=== PATIENT | male | born 1930 | race Caucasian/White ===

== ENCOUNTER 2017-03-12 15:22 | Inpatient (IN) | payer MEDICARE, OTHER ==
[~2017-03-12] VITALS: Ht 175.3 cm; Wt 87.4 kg
--- NOTE | ~2017-03-12 | EC ---
PATIENT:GIRISH PADILLA DATE OF SERVICE: 03/12/17 SEX: M MEDICAL RECORD: [id number] DATE OF : [birth year] LOCATION:[facility] AGE OF PATIENT: 86 ADMISSION DATE: 03/12/17 REFERRING PHYSICIAN: INTERPRETING PHYSICIAN: MOHINI MARIN M.D. ECHOCARDIOGRAM REPORT ECHO CHARGES 5 ECHO LIMITED CLINICAL DIAGNOSIS: REASSESS FOR VEG ECHOCARDIOGRAPHIC MEASUREMENTS (adult normal given) AC root (d.<3.7cm) 3.2 LV Septum d (<1.2 cm> 1.2 Valve Excursion 0.7 LV Septum (systole) 1.9 Left Atria (s.<4.0cm> 4.6 LVPW d(<1.2cm) 1.2 RV (d.<2.3cm) 2.9 LVPW (sytole) 1.8 LV diastole(<5.6CM) 4.7 MV E-F(>70mm/sec) LV systole 3.4 LVOT Diameter 1.9 MV exc.(>10mm) Est.ejection fraction (50-75%) Pericardial Effusion N DOPPLER: LVIT A E 128 LA RVSP 48.3 LVOT 95.0 AOP1/2T Asc. Ao 238 RVOT 57.0 RA PA 96.0 AV Gradient Peak 23.0 AV Mean 13.3 AV Area 1.1 MV Gradient Peak 7.8 MV Mean 3.6 MV Area COMMENTS: Industrial Nurse: Robert LI Slab Off Mill Tender:Robert Marin TAPE# PACS DATE OF SERVICE: 03/22/2017 REFERRING PHYSICIAN: Dr. Vincent Gómez. INDICATION: Endocarditis. DESCRIPTION: This is a limited study. Another study was performed about a week ago. Left ventricle is mildly dilated. There is severe LV dysfunction noted. Estimated ejection fraction is in the order of 20%-25%. The posterior leaflet of the mitral valve is heavily calcified. It is pretty much nonmobile. The ECHOCARDIOGRAM REPORT [id number] GIRISH PADILLA anterior leaflet does move. I did not see any vegetation on the anterior leaflet. There is moderate regurgitation seen. Left atrium is mildly dilated. The aortic valve leaflets are heavily calcified. Right ventricle appears mildly dilated. Tricuspid valve is structurally normal. There is mild regurgitation seen. Right atrium is mildly dilated. No pericardial effusion is noted. IMPRESSION: 1. 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 2. Mitral valve: Posterior leaflet is heavily calcified. I do not see any vegetations on the mitral valve. There is moderate regurgitation noted. 3. Heavily calcified aortic valve, but again this appears to be more calcium and not vegetation. TRANSINT:[id number] Voice Confirmation ID: [id number] DOCUMENT ID: [id number] MOHINI MARIN M.D. CC: [id number] DICTATION DATE: 03/23/17715 ASSISTANT COMMISSIONER: 03/23/17 1240 ADM IN [facility] [address] [id number]
[2017-03-12 15:55] LABS: BASOPHILS 0.1 % (0-2); EOSINOPHILS 0.1 % (0-7); HEMATOCRIT 46.1 % (42.0-54.0); HEMOGLOBIN 15.7 g/dL (13.5-17.5); IMMATURE GRANULOCYTES 0.2 % (0-5); LYMPHOCYTES 2.6 % (15-50); MCH 32.7 pg (26.0-34.0); MCHC 34.1 g/dL (31.0-37.0); MEAN PLATELET VOLUME 10.8 fL (7.4-10.4); PLATELET COUNT 153 10x3/uL (130-400); RDW 13.5 % (11.5-14.5); WBC 14.5 10x3/uL (4.8-10.8)
[2017-03-12 16:08] LABS: ALBUMIN 3.7 g/dL (3.4-5.0); ALKALINE PHOSPHATASE 295 U/L (46-116); ALT (SGPT) 133 U/L (10-68); BILIRUBIN - TOTAL 3.95 mg/dL (0.2-1.3); CALC OSMOLALITY 283 mosm/kg (275-300); CALCIUM 9.2 mg/dL (8.5-10.1); CARBON DIOXIDE 24.2 mmol/L (21.0-32.0); CHLORIDE - SERUM 102 mmol/L (98-107); CREATININE - SERUM 1.6 mg/dL (0.6-1.3); GLUCOSE 187 mg/dL (74-106); PROTEIN - SERUM 7.9 g/dL (6.4-8.2); SODIUM 139 mmol/L (136-145); UREA NITROGEN 15 mg/dL (7-18); eGFR NON AFRICAN AMERICAN 44 mL/min (90-120)
[2017-03-12 16:12] LABS: AMYLASE - SERUM 50 U/L (25-115); LIPASE 189 U/L (73-393); TROPONIN-I < 0.017 ng/mL (0.000-0.060)
[2017-03-12 17:08] LABS: APPEARANCE CLEAR (CLEAR); BILIRUBIN NEGATIVE (NEGATIVE); COLOR YELLOW (YELLOW); GLUCOSE 250 mg/dL (NEGATIVE); KETONE NEGATIVE (NEGATIVE); LEUKOCYTE ESTERASE TRACE (NEGATIVE); NITRITE NEGATIVE (NEGATIVE); PROTEIN 1+ mg/dL (NEGATIVE); SPECIFIC GRAVITY 1.005 (1.005-1.020)
[2017-03-12 17:10] LABS: BACTERIA NONE SEEN /hpf (NONE SEEN); EPITHELIAL CELLS 0-5 /hpf (0-5); RED CELLS - URINE 0-5 /hpf (0-5); WHITE CELLS - URINE 0-5 /hpf (0-5)
[2017-03-12] MEDS ORDERED: CORDARONE200 MG PO (21:56)
[2017-03-12] MEDS ORDERED: SYNTHROID137 MCG PO (22:06)
[2017-03-12] MEDS ORDERED: AVAPRO150 MG PO (22:08)
[2017-03-12] MEDS ORDERED: ELIQUIS5 MG PO (22:10)
[2017-03-12] MEDS ORDERED: SIMBRINZA 1%-0.28 ML EACH EYE (22:17)
--- NOTE | 2017-03-12 23:19 | NUR ---
PATIENT'S SON REQUESTED THAT THE DOC BE CALLED TO REQUEST SOMETHING TO HELP THE PATIENT SLEEP. THE PATIENT IS AGITATED AND WILL NOT STAY IN THE BED. SPOKE WITH KALPESH FILLING TECHNICIAN AND SHE SAID IT WAS OK TO CALL DR. ALEJANDRE.
[2017-03-13] VITALS (22 sets, daily range): BP systolic 58–165; BP diastolic 34–99; BMI 24.4
--- NOTE | 2017-03-13 00:35 | NUR ---
PATIENT'S HR 140, CALLED ANA POSEYSOLIDWORKS DESIGNER TO PULL AMIODARONE.
--- NOTE | 2017-03-13 03:07 | NUR ---
HR 95 CONT A-FIB PER MT
[2017-03-13 05:25] LABS: APTT 35.8 SECONDS (22.8-39.4); INR 1.44 (0.85-1.17); PROTIME 17.4 SECONDS (11.6-15.0)
[2017-03-13 05:27] LABS: ALBUMIN 2.8 g/dL (3.4-5.0); ANION GAP 20.1 mmol/L (8-16); BILIRUBIN - DIRECT 4.56 mg/dL (0.00-0.30); BILIRUBIN - INDIRECT 1.04 mg/dL (0.00-1.00); BILIRUBIN - TOTAL 5.6 mg/dL (0.2-1.3); CALCIUM 8.8 mg/dL (8.5-10.1); CARBON DIOXIDE 18.9 mmol/L (21.0-32.0); CREATININE - SERUM 1.9 mg/dL (0.6-1.3)
[2017-03-13 05:31] LABS: HEMATOCRIT 46.5 % (42.0-54.0); HEMOGLOBIN 15.9 g/dL (13.5-17.5); MCH 32.6 pg (26.0-34.0); MCHC 34.2 g/dL (31.0-37.0); MCV 95.5 fL (80.0-100.0); MEAN PLATELET VOLUME 12.1 fL (7.4-10.4); PLATELET COUNT 147 10x3/uL (130-400); RBC 4.87 10x6/uL (4.20-6.10); RDW 13.7 % (11.5-14.5); WBC 22.5 10x3/uL (4.8-10.8)
[2017-03-13 06:15] LABS: LYMPHOCYTES 5 % (15-50); MONOCYTES 2 % (2-11); NEUTROPHILS 82 % (40-80); PLATELET ESTIMATE NORMAL
--- NOTE | 2017-03-13 06:38 | NUR ---
PATIENT'S BP 119/68
[2017-03-13] MEDS ORDERED: ALKA SELTZER PLUS PO (06:56)
[2017-03-13] MEDS ORDERED: ALKA SELTZER PO (06:57)
[2017-03-13] MEDS ORDERED: ACETAMINOPHEN500 M1 PO (07:03)
--- NOTE | 2017-03-13 09:45 | NUR ---
PATIENT SITTING UP ON SIDE OF BED ALERT WITH FAMILY PRESENT. NO SIGNS OF DISTRESS NOTED. SIDE RAILS UP X2. BED IN LOW POSITION. CALL LIGHT IN REACH. DENIES NEEDS.
--- NOTE | 2017-03-13 18:48 | NUR ---
ARRIVED TO ICU ROOM 2302 VIA WC AND ONE FLOOR STAFF, SITTING ON SIDE OF BED, HARD OF HEARING BUT DOES COMMUNICATE.
--- NOTE | 2017-03-13 19:19 | NUR ---
ASSESSMENT COMPLETE. S1S2. RR SOB; DIMINISHED THROUGHOUT ALL LOBES. NSR SHOWING ON MONITOR. PT CONFUSED; AGGITATED; RESTLESS; AND REFUSING TO REMAIN SAFE. PULLING AT LINES, ATTEMPTING TO GET OUT OF BED, AND INTERFERING WITH CARE GIVERS. ON VAPOTHERM 40L AT 100%; O2 SAT 97%. FLUSHING TO FACE. SKIN COOL; PALE. GENERALIZED BRUISING AND SCABS/SORES. PIV TO RIGHT FOREARM; PATENT. RADIAL PULSES +2; PEDAL PULSES +1. BLANCHABLE REDNESS ON BUTTOCKS.
--- NOTE | 2017-03-13 20:00 | NUR ---
DR. ALEJANDRE PAGED AND NOTIFIED OF AGITATION AND COMBATIVENESS. NEW ORDER REC'D.
--- NOTE | 2017-03-13 20:00 | NUR ---
PT PLACED IN B/L WRIST RESTRAINTS. REFUSING TO REMAIN SAFE; INTERFERING WITH CAREGIVERS; AND PULLING AT LINES.
--- NOTE | 2017-03-13 20:30 | NUR ---
PT ATTEMPTING TO GET OUT OF RESTRAINTS AND ATTEMPTING TO GET OUT OF BED WHILE IN RESTRAINTS. PULLING AT RESTRAINTS AND ATTEMPTING TO BITE AT RESTRAINTS. PT HAS DENTURES IN MOUTH; REFUSES TO REMOVE THEM. BITING WHILE ATTEMPTING TO REMOVE.
--- NOTE | 2017-03-13 21:00 | NUR ---
FAMILY AT VISITATION. UPON ENTERING THE ROOM; FAMILY REMOVED RESTRAINTS; ASSISTED THE PT OUT OF BED. HAD A DIFFICULT TIME GETTING PT TO GET BACK INTO BED. PT STRUCK FAMILY WHILE AT VISITATION. PT CONFUSED. FAMILY QUESTIONS ANSWERED; UPDATE GIVEN. PROVIDED ICU NUMBER AND VISITATION HOURS.
--- NOTE | 2017-03-13 21:54 | NUR ---
PT WENT INTO CARDIOPULMONARY ARREST; CODED. CPR INITATED. FAMILY NOTIFIED. DR ALEJANDRE AND DR TAYLOR NOTIFIED. SEE CODE BLUE SHEET FOR FURTHER DETAILS.
--- NOTE | 2017-03-13 21:54 | NUR ---
UPON ENTERING ROOM PT WAS CYANOTIC, NOT BREATHING, NO PULSE PALPATED, AGONAL HR SHOWING ON MONITOR. CPR INITIATED.
--- NOTE | 2017-03-13 22:01 | NUR ---
PT INTUBATED. 7.5. 23 AT THE LIP. ON 100% AC. RATE 16. TV 500. PEEP 7.
--- NOTE | 2017-03-13 22:45 | NUR ---
FAMILY AT BEDSIDE. PT UNCONTROLLED AFIB. ON MECHANICAL VENT; O2 SAT 99%; RR 34.
--- NOTE | 2017-03-13 23:20 | NUR ---
REASSESSMENT COMPLETE. S1S2. PT SEDATED ON MECHANICAL VENT. B/L WRIST RESTRAINTS IN PLACE. RADIAL AND PEDAL PULSES PALPATED. RR 34; EQUAL; CRACKLES NOTED B/L IN UPPER LOBES, DIMINISHED BILATERALLY IN MID AND LOWER LOBES.
--- NOTE | 2017-03-13 23:34 | NUR ---
SPOKE WITH DR. TAYLOR. ORDERS RECIEVED. INFORMED ON CURRENT PT CONDITION. HYPOTENSION, UNCONTROLLED AFIB.
[2017-03-14] VITALS (31 sets, daily range): BP systolic 79–115; BP diastolic 49–96; Ht 175.3 cm; Wt 87.4 kg
--- NOTE | 2017-03-14 03:15 | NUR ---
REASSESSMENT COMPLETE. PT MECHANICAL VENT FIO2 ADJUSTED TO 70%. NO FURTHER CHANGES. WILL CONTINUE TO MONITOR.
[2017-03-14 04:12] LABS: BASOPHILS 0 % (0-2); EOSINOPHILS 0.1 % (0-7); HEMATOCRIT 40.3 % (42.0-54.0); HEMOGLOBIN 13.9 g/dL (13.5-17.5); IMMATURE GRANULOCYTES 0.6 % (0-5); LYMPHOCYTES 4.4 % (15-50); MCH 32.8 pg (26.0-34.0); MCHC 34.5 g/dL (31.0-37.0); MEAN PLATELET VOLUME 11.8 fL (7.4-10.4); MONOCYTES 7.1 % (2-11); NEUTROPHILS 87.8 % (40-80); PLATELET COUNT 123 10x3/uL (130-400); RBC 4.24 10x6/uL (4.20-6.10); RDW 14.1 % (11.5-14.5)
[2017-03-14 04:19] LABS: WBC 15.6 10x3/uL (4.8-10.8)
[2017-03-14 04:28] LABS: APTT 39.5 SECONDS (22.8-39.4); INR 1.95 (0.85-1.17); PROTIME 22.2 SECONDS (11.6-15.0)
[2017-03-14 04:42] LABS: D-DIMER-QUANTITATIVE 3.52 ug/mLFEU (0.20-0.54)
[2017-03-14 04:50] LABS: ALBUMIN 2.6 g/dL (3.4-5.0); ANION GAP 18.4 mmol/L (8-16); BILIRUBIN - DIRECT 2.93 mg/dL (0.00-0.30); BILIRUBIN - TOTAL 4.04 mg/dL (0.2-1.3); CALCIUM 8.2 mg/dL (8.5-10.1); CARBON DIOXIDE 19.8 mmol/L (21.0-32.0); MAGNESIUM - SERUM 1.8 mg/dL (1.8-2.4); PHOSPHOROUS 3.4 mg/dL (2.5-4.9); POTASSIUM - SERUM 4.2 mmol/L (3.5-5.1); PROTEIN - SERUM 5.8 g/dL (6.4-8.2)
[2017-03-14 04:59] LABS: TROPONIN-I 0.349 ng/mL (0.000-0.060)
--- NOTE | 2017-03-14 07:00 | NUR ---
REC'D REPORT AND RESUMED CARE, ETT TO VENT AND SECURED, AC MODE, WITH 70% FIO2, SAT 98%, OGT TO LIWS. LEFT FA PIV WITH PROPOFAL INFUSING AT 11MCG, RIGHT FA PIV WITH BICARB GTT AT 100 CC/HR, THIBODEAUX TO GRAVITY WITH COLIN DRAINAGE TO BAG, B/L RESTRAINTS IN USE, SCD'S PLACED PER ORDER, ORAL CARE AND SUCTION COMPLETED, ASSESSMENT COMPLETE PER FLOWSHEET
--- NOTE | 2017-03-14 09:18 | NUR ---
TAMIR CÁRDENAS AT BEDSIDE, STATUS UPDATED, CASE MANAGEMENT EVAL COMPLETED BY JOHNNIE, NO OTHER NEEDS AT THIS TIME
--- NOTE | 2017-03-14 09:23 | NUR ---
CONSENT FOR CENTRAL LINE SIGNED BY TAMIR PADILLA
--- NOTE | 2017-03-14 09:30 | NUR ---
ECHO COMPLETED BY CARDIO NEURO TECH
--- NOTE | 2017-03-14 09:44 | NUR ---
* Is the patient Alert and Oriented? Yes 0 * PCP [facility] - [facility] 0 * Pharmacy [facility] @ [facility] 0 * Preadmission Environment Home Alone 0 * ADLs Independent 0 * List name and contact numbers for known caregivers / representatives who currently or will assist patient after discharge: Nikunj Mackey [phone] KATERIN Rosas [phone] Nikunj Verdin [phone] KATERIN Lyn [phone] [facility] Patricio [phone] 0 * Additional services required to return to the preadmission environment? Yes 0 * Can the patient safely return to the preadmission environment? Yes 0 * Has this patient been hospitalized within the prior 30 days at any hospital? No 03/14/2017 9:45 DCP: Discharge Planning Patient Name: GIRISH PADILLA Admission Status: ER Accout number: [id number] Admission Date: 03-12-2017 : 1929 Admission Diagnosis: Attending: BAN Current LOS: 2 Planned Disposition: Home with Home Health Primary Insurance: MEDICARE A & B Discharge Planning Comments: Patient sedated, on vent. Met with sonNarendra, at bedside. He reports patient was living alone & independent with all ADL's & IADL's. He was working on his cattle farm. His neighbor cooks for him. He was not using any assistive devices or had home health services in the past. If patient is unable to return home at discharge, Narendra plans for him to live with him. They are not interested in intermediate facilities. May benefit from home health services. Answered questions. CM will follow and assist as needed. Business Communications Instructor: Patti Garner
--- NOTE | 2017-03-14 09:55 | NUR ---
CENTRAL LINE PLACED TO LEFT SUBCLAVIAN BY DR DOHERTY WITHOUT DIFFICULTY, STAT CHEST XRAY ORDERED
--- NOTE | 2017-03-14 11:00 | NUR ---
NO ACUTE CHANGE FROM PREVIOUS ASSESSMENT, VSS, CONTINUES ON VENT WITH 60% FIO2, REPOSITIONED TO BACK WITH HEEL FLOATED
--- NOTE | 2017-03-14 13:25 | NUR ---
TO RADIOLOGY VIA BED WITH PERSONNEL X3, PORTABLE VENT IN USE, VSS
--- NOTE | 2017-03-14 14:02 | NUR ---
BACK FORM CT WITH PERSONNEL X2, RECONNECTED TO MONITORS, VSS, REPOSITIONED TO BACK WITH HEELS FLOATED
--- NOTE | 2017-03-14 15:00 | NUR ---
NO ACUTE CHANGE FROM PREVIOUS ASSESSMENT, VSS, REPOSITIONED TO RIGHT SIDE WITH PILLOW TO BACK AND HEELS FLOATED, FAMILY HERE FOR VISIT, STATUS UPDATED, REQUESTING TO SPEAK WITH DR ALEJANDRE RE: PATIENT PROGNOSIS, PC TO DR ALEJANDRE, LM TO CALL
--- NOTE | 2017-03-14 15:30 | NUR ---
PC FROM DR ALEJANDRE, HE SPOKE WITH SON MAX VIA PHONE RE: STATUS AND PROGNOSIS
--- NOTE | 2017-03-14 18:19 | NUR ---
FAMILY AT BEDSIDE, STATUS UPDATED, VOICES NO NEEDS AT THIS TIME
--- NOTE | 2017-03-14 19:20 | NUR ---
ASSESSMENT COMPLETE. S1S2; IRREGULAR. UNCONTROLLED AFIB SHOWING ON MONITOR. ON MECHANICAL VENT; FIO2 60%. RR CRACKLES BILATERALLY IN UPPER AND MID LOBES; DIMINISHED BILATERALLY IN LOWER LOBES. B/L WRIST RESTRAINTS. OGT/ETT AND THIBODEAUX IN PLACE. RADIAL PULSES +2; PEDAL PULSES +1. GENERALIZED EDEMA NOTED TO EXTREMITES. ORAL CARE PROVIDED. BRANDY.
--- NOTE | 2017-03-14 20:10 | NUR ---
SPOKE WITH SON ON THE PHONE. STATES CONCERNS OR QUESTIONS ABOUT "PLACING A SUBCUTANEOUS DRAIN IN STOMACH TO DECOMPRESS THE GALLBLADDER." WOULD LIKE TO SPEAK TO A DOCTOR IN AM WHEN DOCTORS MAKE ROUNDS.
--- NOTE | 2017-03-14 21:15 | NUR ---
FAMILY AT BEDSIDE. UPDATE GIVEN. QUESTIONS ANSWERED.
--- NOTE | 2017-03-14 21:21 | OP ---
PATIENT NAME: GIRISH PADILLA MEDICAL RECORD: [id number] :[birth year] LOCATION:[facility] D.2302 ADMISSION DATE:03/12/17 SURGEON: FIDELIA DOHERTY MD DATE OF OPERATION: 03/14/2017 SURGEON: Fidelia Doherty MD. PREOPERATIVE DIAGNOSES: Cholangitis, Gram-negative bacteremia, congestive heart failure, lactic acidosis and peripheral IV access insufficiency. POSTOPERATIVE DIAGNOSES: Cholangitis, Gram-negative bacteremia, congestive heart failure, lactic acidosis, peripheral IV access insufficiency. PROCEDURE PERFORMED: Left subclavian central venous line. ANESTHESIA: Local. COMPLICATIONS: None. SPECIMENS: None. ESTIMATED BLOOD LOSS: 5 cc. Case was clean. OPERATIVE COURSE: After consent was obtained, the patient was placed in the supine position in the ICU bed. A shoulder roll was placed. Left chest and neck were prepped and draped in typical sterile fashion. A timeout was taken to confirm the correct patient and procedure. Left subclavian vein was cannulated on the first pass. The guidewire was placed. The needle was removed. Skin incision was made with 11-blade scalpel. The dilator was passed over the wire in a standard Seldinger fashion. The catheter was passed through the wire in a standard Seldinger fashion. The wire was removed. The catheter was secured to the skin with 2-0 silk suture and a Biopatch as well as sterile Tegaderm dressing. All 3 ports were aspirated and flushed. At the end of the case, all needle and instrument counts were correct. Immediate postoperative chest x-ray was performed. TRANSINT:[id number] Voice Confirmation ID: [id number] DOCUMENT ID: [id number] FIDELIA DOHERTY MD at 2121 CC: [id number] DICTATION DATE: 03/14/17 1009 GROUP MARKETING VP: 03/14/171951 ADM IN [id number] [place] [address]
--- NOTE | 2017-03-14 23:10 | NUR ---
REASSESSMENT COMPLETE. NO CHANGES FROM PREVIOUS ASSESSMENT. VSS. NO DISTRESS NOTED. PT IN RESTRAINTS. AFIB SHOWING ON MONITOR. WILL CONTINUE TO MONITOR.
[2017-03-15] VITALS (26 sets, daily range): BP systolic 98–140; BP diastolic 56–86
--- NOTE | 2017-03-15 03:00 | NUR ---
REASSESSMENT COMPLETE. NO CHANGES FROM PREVIOUS ASSESSMENT. VSS. NO DISTRESS NOTED. WILL CONTINUE TO MONITOR.
--- NOTE | 2017-03-15 03:11 | NUR ---
PT FIO2 DECREASED TO 50%.
[2017-03-15 03:54] LABS: BASOPHILS 0 % (0-2); EOSINOPHILS 0.3 % (0-7); HEMATOCRIT 38.8 % (42.0-54.0); HEMOGLOBIN 13.2 g/dL (13.5-17.5); IMMATURE GRANULOCYTES 0.5 % (0-5); LYMPHOCYTES 8.5 % (15-50); MCV 94.2 fL (80.0-100.0); MEAN PLATELET VOLUME 11.3 fL (7.4-10.4); NEUTROPHILS 84.7 % (40-80); PLATELET COUNT 115 10x3/uL (130-400); RBC 4.12 10x6/uL (4.20-6.10); RDW 14.3 % (11.5-14.5); WBC 11.9 10x3/uL (4.8-10.8)
[2017-03-15 04:09] LABS: ALBUMIN 2.3 g/dL (3.4-5.0); ANION GAP 13.4 mmol/L (8-16); BILIRUBIN - TOTAL 3.27 mg/dL (0.2-1.3); CALCIUM 7.8 mg/dL (8.5-10.1); CARBON DIOXIDE 24.3 mmol/L (21.0-32.0); CREATININE - SERUM 1.6 mg/dL (0.6-1.3); POTASSIUM - SERUM 3.7 mmol/L (3.5-5.1); PROTEIN - SERUM 5.6 g/dL (6.4-8.2)
--- NOTE | 2017-03-15 07:00 | NUR ---
REC'D REPORT AND RESUMED CARE, ETT TO VENTILATION AND SECURED, VETN SETTINGS 50% FIO2, SAT 98%, IN AC MODE, OGT TO LIWS WITH CLEAR DRAINAGE TO CANISTER, LEFT SCTL WITH PROPOFAL INFUSING AT 20 MCG, AND BICARB GTT AT 100 CC/HR, THIBODEAUX TO GRAVITY WITH COLIN DRAINAGE TO BAG, B/L WRIST RESTRAINTS IN USE, SCD'S B/L, ASSESSMENT COMPLETE PER FLOWSHEET, VSS, ORAL CARE AND SUCTION COMPLETED, REPOSITIONED TO LEFT SIDE WITH PILLOW PROPPED TO BACK AND HEELS FLOATED.
--- NOTE | 2017-03-15 08:05 | NUR ---
DR. COOPER AT BEDSIDE FOR EVAL
--- NOTE | 2017-03-15 09:00 | NUR ---
AM MEDS GIVEN PER PROTOCAL AND WITHOUT DIFFICULTY, SEE MAR FLOWSHEET
[2017-03-15 09:17] LABS: CEA 5.8 ng/mL (0.0-4.7)
--- NOTE | 2017-03-15 11:00 | NUR ---
NO AUCTE CHANGE FROM PREVIOUS ASSESSMENT, SEE FLOWSHEET, VSS, ORAL CARE AND SUCTION COMPLETED, REPOSITIONED TO BACK WITH HEELS FLOATED
--- NOTE | 2017-03-15 12:00 | NUR ---
FAMILY AT BEDSIDE, STATUS UPDATED, NO NEEDS AT THIS TIME
--- NOTE | 2017-03-15 15:00 | NUR ---
FAMILY AT BEDSIDE, STATUS UPDATED, VOICES, NO NEEDS AT THIS TIME, ASSESSMENT COMPLETED, NO ACUTE CHANGES FROM PREVIOUS
--- NOTE | 2017-03-15 15:30 | NUR ---
SON MELIA AND TOOK DENTURES HOME AND WILL BRING BACK WHEN PATIENT IS OFF VENT AND EATING
--- NOTE | 2017-03-15 18:00 | NUR ---
FAMILY AT BEDSIDE, STATUS UPDATED, VOICES NO NEEDS AT THIS TIME, PATIENT CONTINUES ON VENT WITH 50% FIO2, SAT, 96%, VSS, PROPOFAL INFUSING AT 30MCG, NO OTHER CHANGES FROM PREVIOUS ASSESSMENT
--- NOTE | 2017-03-15 19:10 | NUR ---
ASSESSMENT COMPLETE. S1S2. NSR SHOWING ON MONITOR. MECHANICAL VENT VIA ETT. FIO2 50%. SEDATED. PERRLA. THIBODEAUX IN PLACE. IN CONTACT ISOLATION. RADIAL PULSE +2; PEDAL PULSE +1. SKIN COOL AND PALE. MUTUEL TELLER < 3 SECONDS.
--- NOTE | 2017-03-15 21:00 | NUR ---
FAMILY AT BEDSIDE. UPDATE GIVEN. QUESTIONS ANSWERED.
--- NOTE | 2017-03-15 23:10 | NUR ---
REASSESSMENT COMPLETE. NO ACTUE CHANGES FROM PREVIOUS ASSESSMENT. VSS. NO DISTRESS NOTED. WILL CONTINUE TO MONITOR.
--- NOTE | 2017-03-15 23:28 | NUR ---
PT HAVING COUGHING EPISODE; SUCTIONED AND ORAL CARE PROVIDED.
[2017-03-16] VITALS (24 sets, daily range): BP systolic 92–124; BP diastolic 53–79
--- NOTE | 2017-03-16 01:35 | NUR ---
COMPLETE BEDBATH GIVEN. COMPLETE LINEN CHANGE. MOISTURIZER APPLIED.
--- NOTE | 2017-03-16 03:12 | NUR ---
REASSESSMENT COMPLETE. NO ACUTE CHANGES FROM PREVIOUS ASSESSMENT. VSS. NO DISTRESS NOTED. WILL CONTINUE TO MONITOR.
[2017-03-16 04:44] LABS: BASOPHILS 0 % (0-2); EOSINOPHILS 0.6 % (0-7); HEMATOCRIT 38.1 % (42.0-54.0); HEMOGLOBIN 12.9 g/dL (13.5-17.5); IMMATURE GRANULOCYTES 0.4 % (0-5); LYMPHOCYTES 6.3 % (15-50); MCHC 33.9 g/dL (31.0-37.0); MCV 94.5 fL (80.0-100.0); MEAN PLATELET VOLUME 12.3 fL (7.4-10.4); MONOCYTES 8.7 % (2-11); PLATELET COUNT 110 10x3/uL (130-400); RBC 4.03 10x6/uL (4.20-6.10); RDW 14.2 % (11.5-14.5); WBC 10.5 10x3/uL (4.8-10.8)
[2017-03-16 04:50] LABS: INR 1.22 (0.85-1.17); PROTIME 15.3 SECONDS (11.6-15.0)
[2017-03-16 05:01] LABS: ANION GAP 8.5 mmol/L (8-16); BILIRUBIN - DIRECT 2.41 mg/dL (0.00-0.30); BILIRUBIN - TOTAL 3.4 mg/dL (0.2-1.3); CALCIUM 7.8 mg/dL (8.5-10.1); POTASSIUM - SERUM 3.5 mmol/L (3.5-5.1); PROTEIN - SERUM 5.2 g/dL (6.4-8.2)
[2017-03-16 05:02] LABS: CREATININE - SERUM 1.1 mg/dL (0.6-1.3)
--- NOTE | 2017-03-16 06:22 | NUR ---
PRBC TRANSFUSION COMPLETE.
--- NOTE | 2017-03-16 06:24 | NUR ---
SPOKE WITH FAMILY AT VISITATION. QUESTIONS ANSWERED. UPDATE GIVEN.
--- NOTE | 2017-03-16 07:00 | NUR ---
REC'D REPORT AND RESUMED CARE, ETT TO VENTILATION AND SECURED, 50% FIO2 IN USE, SAT 97%, OTHER VSS, LEFT SCTL IN PLACE, DRESSING CDI, THIBODEAUX TO GRAIVTY WITH CLEAR YELLOW DRAINAG ETO BAG, SCD'S AND WRIST RESTRAINTS B/L, ISOLATION PRECAUTIONS IN USE, ASSESSMENT COMPLETE PER FLOWSHEET, REPOSITIONED TO LEFT WITH PILLOW PROPPED TO BACK AND HEELS FLOATED
--- NOTE | 2017-03-16 08:00 | NUR ---
DR BUNN AND DR DOHERTY AT BEDSIDE, DECISION MED FOR PATIENT TO GO TO SURGERY TODAY
--- NOTE | 2017-03-16 09:00 | NUR ---
FAMILY AT BEDSIDE, STATUS UPDATED, AWAITING PATIENT TO GO TO SURGERY, NO OTHER NEEDS AT THIS TIME
--- NOTE | 2017-03-16 10:01 | NUR ---
Nutrition follow-up: Pt remains intubated, sedated NPO Scheduled for Lap Amanda today Labs reviewed OGT->LIWS Wt: 175# RDN following.
--- NOTE | 2017-03-16 11:00 | NUR ---
ASSESSMENT COMPLETE SEE FLOWSHEET, VSS, NO ACUTE CHANGE FROM PREVIOUS
--- NOTE | 2017-03-16 12:25 | NUR ---
TO SURGERY VIA BED WITH PERSONNEL X4, VSS, SEDATED, AMBU BAG IN USE,
--- NOTE | 2017-03-16 19:30 | NUR ---
ASSESSMENT COMPLETE. S1S2. MECHANICAL VENT VIA ETT. FIO2 50%. RR CRACKLES AND WHEEZE NOTED BILATERALLY IN UPPER AND MID LOBES; DIMINISHED BILATERALLY IN LOWER LOBES. B/L WRIST RESTRAINTS IN PLACE; RISK FOR SELF EXTUBATION. PERRLA. SEDATED. RADIAL PULSES +2, PEDAL PULSES +1. SKIN COOL; PALE.
--- NOTE | 2017-03-16 23:16 | NUR ---
REASSESSMENT COMPLETE. NO ACUTE CHANGES FROM PREVIOUS ASSESSMENT
[2017-03-17] VITALS (24 sets, daily range): BP systolic 94–131; BP diastolic 53–91
--- NOTE | 2017-03-17 03:00 | NUR ---
REASSESSMENT COMPLETE. NO ACUTE CHANGES FROM PREVIOUS ASSESSMENT. VSS. NO DISTRESS NOTED. WILL CONTINUE TO MONITOR.
[2017-03-17 04:49] LABS: BASOPHILS 0 % (0-2); EOSINOPHILS 0 % (0-7); HEMATOCRIT 35.4 % (42.0-54.0); HEMOGLOBIN 12.2 g/dL (13.5-17.5); IMMATURE GRANULOCYTES 0.4 % (0-5); LYMPHOCYTES 7.8 % (15-50); MCH 32.7 pg (26.0-34.0); MCHC 34.5 g/dL (31.0-37.0); MCV 94.9 fL (80.0-100.0); MEAN PLATELET VOLUME 11.6 fL (7.4-10.4); MONOCYTES 8.5 % (2-11); NEUTROPHILS 83.3 % (40-80); PLATELET COUNT 102 10x3/uL (130-400); RBC 3.73 10x6/uL (4.20-6.10); RDW 14.4 % (11.5-14.5); WBC 7.9 10x3/uL (4.8-10.8)
[2017-03-17 05:00] LABS: INR 1.09 (0.85-1.17)
[2017-03-17 05:13] LABS: ALBUMIN 1.7 g/dL (3.4-5.0); ANION GAP 9.9 mmol/L (8-16); BILIRUBIN - DIRECT 1.56 mg/dL (0.00-0.30); BILIRUBIN - TOTAL 2.3 mg/dL (0.2-1.3); CALCIUM 7.5 mg/dL (8.5-10.1); CREATININE - SERUM 1.3 mg/dL (0.6-1.3); POTASSIUM - SERUM 3.9 mmol/L (3.5-5.1); PROTEIN - SERUM 4.9 g/dL (6.4-8.2)
--- NOTE | 2017-03-17 06:30 | NUR ---
OBTAINED CONSENTS FOR ERCP; SIGNED BY TAMIR CÁRDENAS.
--- NOTE | 2017-03-17 08:24 | OP ---
PATIENT NAME: GIRISH PADILLA MEDICAL RECORD: [id number] :[birth year] LOCATION:[facility] D.2302 ADMISSION DATE:03/12/17 SURGEON: FIDELIA DOHERTY MD DATE OF OPERATION: 03/16/2017 SURGEON: Dr. Fidelia Doherty. PREOPERATIVE DIAGNOSES: 1. Cholangitis 2. Septic shock. 3. Cholecystitis. POSTOPERATIVE DIAGNOSES: 1. Cholangitis 2. Septic shock. 3. Cholecystitis. PROCEDURE PERFORMED: Laparoscopic cholecystectomy. ANESTHESIA: General. COMPLICATIONS: None. SPECIMENS: None. Case was clean contaminated. ESTIMATED BLOOD LOSS: 30 cc. SPECIMENS: 1. Gallbladder. 2. Cytology. ANESTHESIA: General. OPERATIVE COURSE: After consent was obtained, the patient was taken to the operating room and placed in the supine position on the operating table. Next, general anesthesia was given via endotracheal intubation. After a timeout was performed that confirmed the correct patient and procedure, the abdomen was then prepped and draped in typical sterile fashion. Local anesthetic was injected just above the umbilicus. A stab incision was made with 11-blade scalpel. Using a 5-mm bladeless optical trocar, the abdomen was entered under direct laparoscopic vision. Adequate pneumoperitoneum was achieved. The abdominal cavity was inspected. No evidence of bowel injury. No evidence of bleeding. At this time, all remaining trocars were placed after the administration of local anesthetic, two 5-mm trocars in the right upper quadrant and 11-mm trocar in the subxiphoid position. The fundus of the gallbladder was grasped and retracted cephalad. The infundibulum was grasped and retracted laterally. The peritoneum was incised using electrocautery. Blunt dissection was then performed until the critical view was obtained. The cystic duct lateral, cystic artery medial liver in the posterior window, 2 clips were placed in the proximal cystic artery, 1 clip distal and the artery was transected with laparoscopic Metzenbaum scissors. A more intimate dissection was then performed in the cystic duct. Once completed, 3 clips were placed in the proximal cystic duct, 1 clip distal. The duct was transected with laparoscopic Metzenbaum scissors. At OPERATIVE REPORT [id number] GIRISH PADILLA this time, the remaining portion of the gallbladder was dissected off the liver bed using electrocautery. Once complete, it was grasped and was placed in the EndoCatch bag, removed and sent for frozen section. At the beginning of the case after the trocars were inserted, the intra-abdominal ascitic fluid was suctioned into a sterile Lukens trap and sent for cytology. The operative field was then copiously irrigated and suctioned. Careful attention was paid to hemostasis, which was obtained in the liver bed using electrocautery. The Jolie was applied to the wound bed to ensure hemostasis. A AGUSTÍN drain was placed across into the foramen of Alberto and brought out through the lateral trocar at this time. The abdominal cavity was again inspected and there is no evidence of bowel injury. No evidence of bleeding. The remaining portion of the abdomen was copiously irrigated and suctioned. There is no evidence of bowel injury. No evidence of bleeding, no evidence of bile leak. At this time, all remaining instruments were removed. Abdomen was desufflated. Trocars were then removed. Skin was closed with 4-0 Monocryl, Mastisol and Steri-Strips. At the end of the case, all needle and instruments counts were correct. No complications occurred. The patient was returned to the ICU on the ventilator in stable condition. TRANSINT:[id number] Voice Confirmation ID: [id number] DOCUMENT ID: [id number] FIDELIA DOHERTY MD at 0824 CC: [id number] DICTATION DATE: 03/16/17 1341 PRINCIPAL GIFTS OFFICER: 03/17/17 0023 ADM IN [facility] [address] [place] [address]
--- NOTE | 2017-03-17 10:49 | NUR ---
0800 AM ASSESMENT IS COMPLETE SEE FLOW SHEET FOR FINDINGS.. 0900 FAMILY IN TOSEE PT AND UPDATEGIVEN.
--- NOTE | 2017-03-17 13:18 | NUR ---
1200 FAMILY IN TO SEE PT.. DR MAYA IN UNIT SPOKE WITH FAMILY AT THE BEDSIDE.. ERCP CANCELLED FOR TODAY
--- NOTE | 2017-03-17 18:12 | NUR ---
1500 FAMILY IN TO SEE PT AND UPDATE GIVEN.. 1600 I AND O DONE
--- NOTE | 2017-03-17 19:45 | NUR ---
SHIFT ASSESSMENT COMPLETED. SEE ASSESSMENT. ON THE VENT. SEE ASSESSMENT FLOWSHEET FOR DETAILS.
--- NOTE | 2017-03-17 21:00 | NUR ---
FAMILY AT BEDSIDE. UPDATE GIVEN. WILL MONITOR.
--- NOTE | 2017-03-17 22:50 | NUR ---
NO NEW ACUTE CHANGES NOTED. WILL MONITOR.
--- NOTE | 2017-03-17 23:25 | NUR ---
RT LOWER ABDOMEN AREA AGUSTÍN DRAIN SITE DRSG SATURATED WITH SEROSANGUINOUS DRAINAGE. DRSG CHANGED WITH 2 PACKAGES DRAIN SPONGES, 4X4'S AND MEDIPORE TAPE. WILL MONITOR.
[2017-03-18] VITALS (24 sets, daily range): BP systolic 102–156; BP diastolic 40–102
--- NOTE | 2017-03-18 01:20 | NUR ---
EYES CLOSED. NO ACUTE DISTRESS NOTED. SEE ADL FLOWSHEET.
--- NOTE | 2017-03-18 03:15 | NUR ---
PORTABLE CHEST XRAY COMPLETED. TOLERATED WELL. REASSESSMENT COMPLETED. SEE ASSESSMENT FLOWSHEET. NO NEW ACUTE CHANGES NOTED. WILL MONITOR.
--- NOTE | 2017-03-18 04:50 | NUR ---
AM LABS DRAWN FROM LEFT SC CVL WITHOUT DIFFICULTY. ALL PORTS FLUSH WITH EASE. WILL MONITOR.
[2017-03-18 04:57] LABS: BASOPHILS 0 % (0-2); EOSINOPHILS 0 % (0-7); HEMOGLOBIN 11.7 g/dL (13.5-17.5); IMMATURE GRANULOCYTES 0.4 % (0-5); LYMPHOCYTES 7.8 % (15-50); MCH 31.5 pg (26.0-34.0); MCHC 33.4 g/dL (31.0-37.0); MCV 94.3 fL (80.0-100.0); MEAN PLATELET VOLUME 11.9 fL (7.4-10.4); MONOCYTES 10.7 % (2-11); NEUTROPHILS 81.1 % (40-80); RBC 3.71 10x6/uL (4.20-6.10); RDW 14.1 % (11.5-14.5)
[2017-03-18 04:58] LABS: PLATELET COUNT 128 10x3/uL (130-400)
[2017-03-18 05:08] LABS: INR 1.18 (0.85-1.17); PROTIME 14.9 SECONDS (11.6-15.0)
[2017-03-18 05:15] LABS: ALBUMIN 1.6 g/dL (3.4-5.0); ANION GAP 8.9 mmol/L (8-16); BILIRUBIN - TOTAL 1.4 mg/dL (0.2-1.3); CALCIUM 7.6 mg/dL (8.5-10.1); CARBON DIOXIDE 29.9 mmol/L (21.0-32.0); CREATININE - SERUM 1.1 mg/dL (0.6-1.3); POTASSIUM - SERUM 3.8 mmol/L (3.5-5.1); PROTEIN - SERUM 4.9 g/dL (6.4-8.2)
--- NOTE | 2017-03-18 06:20 | NUR ---
DR. MAYA AT BEDSIDE TALKING TO FAMILY. UPDATE GIVEN. WILL MONITOR.
--- NOTE | 2017-03-18 07:32 | NUR ---
NO ACUTE DISTRESS NOTED. TURNED Q2H. PT NOT FOLLOWING COMMANDS. FACIAL GRIMACING NOTED. WILL CONTINUE PLAN OF CARE.
--- NOTE | 2017-03-18 08:41 | NUR ---
Nutrition follow-up/consult: Pt continues NPO s/p lap-joe Labs reviewed Received verbal order from Dr. Mc to start TF @ 20 ml/hr and advance 10 ml every 4 hours to goal rate if pt tolerating. Recommend Vital 1.0 nisha @ goal rate of 85 ml/hr. RDN will put in the order. Following.
--- NOTE | 2017-03-18 09:31 | NUR ---
NO ACUTE DISTRESS NOTED AT THIS TIME. PT NOT FOLLOWING COMMANDS. ATTEMPTING WEANING AT THIS TIME WITH PROPIFOL. WILL CONTINUE PLAN OF CARE.
--- NOTE | 2017-03-18 10:12 | NUR ---
AGUSTÍN DRAIN DC AT THIS TIME PER ORDERS. 1 SUITURE REMOVED FROM AREA AND AGUSTÍN DRAIN DC. 50ML CLEAR RED FLUID NOTED TO DRAIN. COVERED WITH 4X4 GAUZE AND TAPE. NO ACUTE DISTRESS NOTED. WILL CONTINUE PLAN OF CARE.
--- NOTE | 2017-03-18 10:15 | NUR ---
PROPIFOL OFF AT THIS TIME, PT EYES OPEN DOES NOT FOLLOW COMMANDS. WILL CONTINUE PLAN OF CARE.
--- NOTE | 2017-03-18 11:30 | NUR ---
AGGITATION NOTED. SYSTOLIC BP INCREASED TO 160, RESPIRATIONS INCREASED. PROPIFOL TURNED BACK ON AT THIS TIME. PT STILL NOT FOLLOWING COMMANDS AND NOT TRAILING STAFF WITH EYES. NO ACUTE DISTRESS NOTED. WILL CONTINUE PLAN OF CARE.
--- NOTE | 2017-03-18 12:53 | EC ---
PATIENT:GIRISH PADILLA DATE OF SERVICE: 03/12/17 SEX: M MEDICAL RECORD: [id number] DATE OF : [birth year] LOCATION:[place] [address] AGE OF PATIENT: 86 ADMISSION DATE: 03/12/17 REFERRING PHYSICIAN: INTERPRETING PHYSICIAN: MARC MARIA MD ECHOCARDIOGRAM REPORT ECHO CHARGES 4 ECHO COMPLETE CLINICAL DIAGNOSIS: CHF/SOB ECHOCARDIOGRAPHIC MEASUREMENTS (adult normal given) AC root (d.<3.7cm) 3.2 LV Septum d (<1.2 cm> 1.2 Valve Excursion 0.7 LV Septum (systole) 1.9 Left Atria (s.<4.0cm> 4.6 LVPW d(<1.2cm) 1.2 RV (d.<2.3cm) 2.9 LVPW (sytole) 1.8 LV diastole(<5.6CM) 4.7 MV E-F(>70mm/sec) LV systole 3.4 LVOT Diameter 1.9 MV exc.(>10mm) Est.ejection fraction (50-75%) Pericardial Effusion N DOPPLER: LVIT A E 128 LA RVSP 48.3 LVOT 95.0 AOP1/2T Asc. Ao 238 RVOT 57.0 RA PA 96.0 AV Gradient Peak 23.0 AV Mean 13.3 AV Area 1.1 MV Gradient Peak 7.8 MV Mean 3.6 MV Area COMMENTS: Insurance Analyst: Marshall DANIELSOE Process Improvement Engineer:Cliff Yan TAPE# PACS DATE OF SERVICE: 03/14/2017 Adequate 2D echo, color flow, spectral Doppler and M-mode. Borderline LVH. LV internal dimensions are normal. LV is globally hypokinetic, reduced EF. Estimated EF 20-25%. Aortic valve is calcified with restriction of leaflet motion. Calculated aortic valve area of 1.1 cm-squared putting this in the moderate range. Left atrium is dilated at 4.6 cm. Mitral valve is thickened. Moderate MR. Right-sided chambers grossly normal. Moderate TR. RV systolic pressure is estimated at greater than 48 mmHg via the continuity equation ____ small ASD. ECHOCARDIOGRAM REPORT [id number] GIRISH PADILLA TRANSINT:[id number] Voice Confirmation ID: [id number] DOCUMENT ID: [id number] MARC MARIA MD at 1253 CC: [id number] DICTATION DATE: 03/14/17 1336 FIOS LINE INSTALLER: 03/15/17 0004 ADM IN [place] [id number] [place] [address]
--- NOTE | 2017-03-18 13:38 | NUR ---
NO CHANGE. NO ACUTE DISTRESS NOTED. WILL CONTINUE PLAN OF CARE.
--- NOTE | 2017-03-18 15:08 | NUR ---
FAMILY AT BEDSIDE. UPDATE GIVEN. NO ACUTE DISTRESS NOTED. WILL CONTINUE PLAN OF CARE.
--- NOTE | 2017-03-18 17:38 | NUR ---
DRESSING CHANGE TO RT ABD JEANETTE AGUSTÍN DRAIN SITE. CLEAR YELLOW FLUID NOTED. DRESSING AND LINEN CHANGE PROVIDED AT THIS TIME. NO ACUTE DISTRESS NOTED. WILL CONTINUE PLAN OF CARE.
--- NOTE | 2017-03-18 19:30 | NUR ---
SHIFT ASSESSMENT COMPLETED. SEE ASSESSMENT FLOWSHEET FOR DETAILS. ON VENT. SEDATED ON PROPOFOL AT 40MCG/KG/MIN, DECREASED TO 35 DUE TO SBP 110 AT PRESENT. ORAL CARE COMPLETED. WILL MONITOR.
--- NOTE | 2017-03-18 21:00 | NUR ---
FAMILY AT BEDSIDE. UPDATE GIVEN. QUSETIONS ANSWERED.
--- NOTE | 2017-03-18 21:30 | NUR ---
PO CARDIZEM CRUSHED AND GIVEN VIA OGT. FLUSHED WITH 60ML OF WATER. GASTRIC RESIDUAL BEFORE INSTILLING, 10ML. INCREASED TUBE FEED RATE TO 30ML/HR PER ORDERS. ORAL CARE COMPLETED. WILL MONITOR.
--- NOTE | 2017-03-18 23:50 | NUR ---
OLD AGUSTÍN DRAIN SITE TO RT LOWER ABDOMEN OOZING SEROUS DRAINAGE ONTO BEDDING. BATH GIVEN. PARTIAL LINEN CHANGE COMPLETED. THIBODEAUX CARE COMPLETED.
[2017-03-19] VITALS (25 sets, daily range): BP systolic 101–155; BP diastolic 49–72
--- NOTE | 2017-03-19 01:30 | NUR ---
ORAL CARE PROVIDED PER BERNADINE WITH R.T. WILL MONITOR.
--- NOTE | 2017-03-19 03:30 | NUR ---
PORTABLE CHEST XRAY COMPLETED. REASSESSMENT COMPLETED. SEE ASSESSMENT FLOWSHEET. NO NEW ACUTE CHANGES NOTED. CONSTANTLY COUGHS WHEN SEDATION HELD. DIPRIVAN @ 45 MCG/KG/MIN. RT LOWER ABD DRSG C/D/I SINCE PREVIOUS DRSG CHANGE. SCROTAL EDEMA STILL NOTED AND SCROTUM ELEVATED WITH PILLOWCASE. WILL MONITOR.
--- NOTE | 2017-03-19 04:20 | NUR ---
AM LABS DRAWN FROM LEFT SC CVL WITHOUT DIFFICULTIES. FLUSHES WELL.
[2017-03-19 04:34] LABS: BASOPHILS 0 % (0-2); EOSINOPHILS 2.5 % (0-7); HEMATOCRIT 36.1 % (42.0-54.0); HEMOGLOBIN 12.1 g/dL (13.5-17.5); IMMATURE GRANULOCYTES 0.8 % (0-5); LYMPHOCYTES 13.8 % (15-50); MCH 31.9 pg (26.0-34.0); MCHC 33.5 g/dL (31.0-37.0); MCV 95.3 fL (80.0-100.0); MEAN PLATELET VOLUME 11.6 fL (7.4-10.4); MONOCYTES 7.5 % (2-11); NEUTROPHILS 75.4 % (40-80); PLATELET COUNT 126 10x3/uL (130-400); RBC 3.79 10x6/uL (4.20-6.10); RDW 14.4 % (11.5-14.5); WBC 9.1 10x3/uL (4.8-10.8)
[2017-03-19 04:55] LABS: ALBUMIN 1.5 g/dL (3.4-5.0); ALKALINE PHOSPHATASE 168 U/L (46-116); ALT (SGPT) 75 U/L (10-68); BILIRUBIN - TOTAL 1.34 mg/dL (0.2-1.3); CALC OSMOLALITY 288 mosm/kg (275-300); CALCIUM 7.8 mg/dL (8.5-10.1); CARBON DIOXIDE 29.5 mmol/L (21.0-32.0); CHLORIDE - SERUM 107 mmol/L (98-107); CREATININE - SERUM 0.9 mg/dL (0.6-1.3); GLUCOSE 151 mg/dL (74-106); POTASSIUM - SERUM 3.7 mmol/L (3.5-5.1); PROTEIN - SERUM 4.9 g/dL (6.4-8.2); SODIUM 141 mmol/L (136-145); UREA NITROGEN 27 mg/dL (7-18); eGFR NON AFRICAN AMERICAN 85 mL/min (90-120)
--- NOTE | 2017-03-19 06:00 | NUR ---
NEW BOTTLE OF PROPOFOL HUNG.
--- NOTE | 2017-03-19 06:15 | NUR ---
FAMILY IN ROOM FOR 0600 VISITATION. UPDATE GIVEN. WILL MONITOR.
--- NOTE | 2017-03-19 08:16 | NUR ---
NO ACUTE DISTRESS NOTED. PT DOES NOT FOLLOW COMMANDS. NO ACUTE DISTRESS NOTED. WILL CONTINUE PLAN OF CARE.
--- NOTE | 2017-03-19 10:40 | NUR ---
NO ACUTE DISTRESS NOTED. PT TURNED Q2H. DRESSING CHANGED TO RT ABDOMINAL SITE OF OLD AGUSTÍN DRAIN SITE, SMALL AMOUNT OF YELLOW DRAINAGE NOTED. WILL CONTINUE PLAN OF CARE.
--- NOTE | 2017-03-19 12:51 | NUR ---
SPOKE WITH ORACLE DATABASE ANALYST AT THIS TIME. NOTED ORDER TO CALL SURGERY TO SEE IF PT CAN RESTART ANTIGOACULANT SUCH LOVENOX SINCE PT HAS AFIB. SPOKE WITH DR MANN, NOTED ORDER TO RESTART HOME ELIQUIS OF 5MG BID[address] PL[address] ORDERS.
--- NOTE | 2017-03-19 14:42 | NUR ---
NO ACUTE DISTRESS NOTED. NO CHANGE. WILL CONTINUE PLAN OF CARE.
--- NOTE | 2017-03-19 16:43 | NUR ---
TURNED Q2H. NO ACUTE DISTRESS NOTED. PT NOT FOLLOWING SIMPLE COMMANDS. WILL CONTINUE PLAN OF CARE.
--- NOTE | 2017-03-19 18:41 | NUR ---
DRESSING TO RIGHT ABDOMEN, DC AGUSTÍN SITE, CHANGED AT THIS TIME. OLD DRESSING SATURATED WITH YELLOW DRAINAGE. NO ACUTE DISTRESS NOTED. PT TURNED Q2H. WILL CONTINUE PLAN OF CARE.
--- NOTE | 2017-03-19 19:45 | NUR ---
SHIFT ASSESSMENT COMPLETED. SEE ASSESSMENT FLOWSHEET FOR DETAILS.
--- NOTE | 2017-03-19 20:50 | NUR ---
2100 MEDS GIVEN VIA OGT. WILL MONITOR.
--- NOTE | 2017-03-19 21:00 | NUR ---
SON AT BEDSIDE FOR VISITATION. UPDATE GIVEN.
--- NOTE | 2017-03-19 22:30 | NUR ---
TURNED AND REPOSITIONED TO RT SIDE. ORAL CARE COMPLETED. IV LUCIO CACERES. WILL MONITOR.
[2017-03-20] VITALS (25 sets, daily range): BP systolic 97–147; BP diastolic 49–74
--- NOTE | 2017-03-20 00:15 | NUR ---
NEW TUBE FEEDING BAG STARTED AND INCREASED FEEDINGS TO 70ML/HR.
--- NOTE | 2017-03-20 02:00 | NUR ---
EYES CLOSED. NO ACUTE DISTRESS NOTED. WILL MONITOR.
--- NOTE | 2017-03-20 03:50 | NUR ---
REASSESSMENT COMPLETED. SEE ASSESSMENT FLOWSHEET. NO NEW ACUTE CHANGES NOTED. GRIMACES WITH ORAL CARE AND OFF SEDATION COUGHS CONTINUOUSLY. DOES NOT OPEN EYES. AM LABS SPECIMEN TAKEN FROM LEFT SC CVL. WILL MONITOR.
[2017-03-20 03:51] LABS: BASOPHILS 0.1 % (0-2); EOSINOPHILS 2.6 % (0-7); HEMATOCRIT 36.2 % (42.0-54.0); HEMOGLOBIN 12.2 g/dL (13.5-17.5); IMMATURE GRANULOCYTES 1.1 % (0-5); LYMPHOCYTES 12.2 % (15-50); MCH 31.9 pg (26.0-34.0); MCHC 33.7 g/dL (31.0-37.0); MCV 94.5 fL (80.0-100.0); MEAN PLATELET VOLUME 11.8 fL (7.4-10.4); MONOCYTES 5.3 % (2-11); NEUTROPHILS 78.7 % (40-80); PLATELET COUNT 126 10x3/uL (130-400); RBC 3.83 10x6/uL (4.20-6.10); RDW 14.4 % (11.5-14.5); WBC 11.4 10x3/uL (4.8-10.8)
[2017-03-20 04:08] LABS: ALBUMIN 1.5 g/dL (3.4-5.0); ANION GAP 10.4 mmol/L (8-16); BILIRUBIN - TOTAL 1.19 mg/dL (0.2-1.3); CALCIUM 7.9 mg/dL (8.5-10.1); CARBON DIOXIDE 29.2 mmol/L (21.0-32.0); CREATININE - SERUM 1.1 mg/dL (0.6-1.3); POTASSIUM - SERUM 3.6 mmol/L (3.5-5.1); PROTEIN - SERUM 4.7 g/dL (6.4-8.2)
--- NOTE | 2017-03-20 04:15 | NUR ---
COMPLETE BED BATH AND LINEN CHANGE COMPLETED. MEDIUM SIZED PASTY, LT BROWN BM CLEANSED FROM PERINEAL AREA. SCROTAL EDEMA NOTED AND ELEVATED SCROTUM AFTER BATH. REDNESS NOTED TO CREASES OF BETWEEN SCROTUM AND LEGS. NEW B/P CUFF PLACED ON OPPOSITE ARM AND NEW ELECTRODES PLACED.
--- NOTE | 2017-03-20 05:30 | NUR ---
IV SYNTHROID GIVEN.
--- NOTE | 2017-03-20 08:56 | NUR ---
NO ACUTE DISTRESS NOTED AT THIS TIME. NOTED 60ML RESIDUAL TO OGT. PT RECIEVING TUBE FEED FLUIDS AT GOAL RATE. PT TURNED Q2H. WILL CONTINUE PLAN OF CARE.
--- NOTE | 2017-03-20 09:36 | NUR ---
SPOKEN WITH PTS FAMILY, NOTED REQUESTS FOR EEG TO CHECK FOR NEURO ACTIVITY, CARDIOLOGY CONSULT FOR CHF AND AFIB, AND CONCERNS ABOUT EDEMA. ALL QUESTIONS ADDRESSED AND HAVE SPOKEN WITH PHYSICIANS. ORDERS PLACED. WILL CONTINUE PLAN OF CARE.
--- NOTE | 2017-03-20 11:10 | NUR ---
NO ACUTE DISTRESS NOTED AT THIS TIME. NO CHANGE. PT TURNED Q2H. WILL CONTINUE PLAN OF CARE.
--- NOTE | 2017-03-20 13:38 | NUR ---
DRESSING CHANGE PERFORMED TO DC AGUSTÍN DRAIN SITE TO RIGHT ABDOMEN. MODERATE CLEAR-YELLOW DRAINAGE NOTED. TOTAL BED CHANGE PERFORMED VIA TOTAL X 2 PERSON ASSIST. NO ACUTE DISTRESS NOTED. WILL CONTINUE PLAN OF CARE.
--- NOTE | 2017-03-20 14:06 | NUR ---
NO ACUTE DISTRESS NOTED. 60ML RESUDUAL NOTED. WILL CONTINUE PLAN OF CARE.
--- NOTE | 2017-03-20 16:31 | NUR ---
DRESSING CHANGED TO RIGHT SIDE OF ABOMDEN, OLD DRESSING TO REMOVED AGUSTÍN DRAIN NOTED SATURATED WITH CLEAR YELLOW DRAINAGE. NO ACUTE DISTRESS NOTED. PT TURNED Q2H. WILL CONTINUE PLAN OF CARE.
--- NOTE | 2017-03-20 19:00 | NUR ---
REPORT RECEIVED, SEE FLOW SHEET FOR COMPLETE ASSESSMENT. SEDATED ON VENT, SEE FLOW SHEET FOR VENT SETTINGS. ETT IN PLACE. OGT INFUSING TUBE FEEDINGS AT 75 MLS/HR. TELEMETRY MONITORING CONTROLLED A-FIB RATE OF 83. THIBODEAUX CATHETER IN PLACE, EDEMA NOTED IN SCROTUM. SCDs IN PLACE. HOB AT 30 DEGREES. BED IN LOWEST POSITION.
--- NOTE | 2017-03-20 19:00 | NUR ---
REPORT RECEIVED. ASSESSMENT COMPLETE SEE FLOW SHEET FOR DETAILS. SEDATED ON VENT SEE FLOW SHEET FOR VENTI SETTINGS. ORAL CARE PROVIDED. TELEMETRY MONITORING CONTROLLED A-FIB AT RATE OF 83. ETT IN PLACE VIA ORAL ROUTE. OGT IN PLACE RECEIVING TUBE FEEDINGS AT 75 MLS/HR. R IJ CVL PATENT INFUSING SEE FLOW SHEET FOR IV DRIPS. THIBODEAUX CATHETER IN PLACE, EDEMA NOTED IN SCROTUM. SCDs IN PLACE. BED 30 DEGREES AND IN LOWEST POSITION. WILL CONTINUE TO MONITOR.
--- NOTE | 2017-03-20 21:00 | NUR ---
SEDATED ON VENT. SON MISTI IN ROOM INFORMED HIM ABOUT STATUS OF PATIENT. VSS. WILL CONTINUE TO MONITOR.
--- NOTE | 2017-03-20 21:32 | NUR ---
MEDICATIONS ADMINISTERED. VSS. WILL CONTINUE TO MONITOR.
--- NOTE | 2017-03-20 23:00 | NUR ---
REASSESSMENT COMPLETE SEE FLOW SHEET FOR DETAILS. NO CHANGES NOTED. WILL CONTINUE TO MONITOR.
[2017-03-21] VITALS (23 sets, daily range): BP systolic 109–144; BP diastolic 56–88
--- NOTE | 2017-03-21 01:00 | NUR ---
NO CHANGES NOTED. VSS. BED IN LOWEST POSITION. WILL CONTINUE TO MONITOR.
--- NOTE | 2017-03-21 03:00 | NUR ---
REASSESSMENT COMPLETE, SEE FLOWSHEET FOR DETAILS. VSS. WILL CONTINUE TO MONITOR. BED IN LOWEST POSITION.
--- NOTE | 2017-03-21 05:00 | NUR ---
NO CHANGES NOTED. VSS. WILL CONTINUE TO MONITOR.
--- NOTE | 2017-03-21 06:10 | NUR ---
TAMIR CÁRDENAS IN ROOM, DISCUSSED PT STATUS. VSS. WILL CONTINUE TO MONITOR. BED IN LOWEST POSITION.
--- NOTE | 2017-03-21 09:29 | NUR ---
Nutrition follow-up: Vital 1.0 infusing @ 75 ml/hr via OGT; pt tolerating at this time Sedation off Labs reviewed +BM RDN following.
--- NOTE | 2017-03-21 10:11 | CN ---
PATIENT NAME:GIRISH PADILLA MEDICAL RECORD: [id number] : [birth year] LOCATION:[place] ADMIT DATE: 03/12/17 ACCOUNT: [id number] CONSULTING PHYSICIAN: DEMARIO LANZA MD REFERRING PHYSICIAN: CARA ALEJANDRE MD DATE OF CONSULTATION: 03/20/2017 CARDIOLOGY CONSULTATION DIAGNOSES: 1. Cardiomyopathy. 2. Coronary artery disease. 3. Paroxysmal atrial fibrillation. 4. Hypertension. 5. Sepsis Gram-negative. HISTORY OF PRESENT ILLNESS: This is a gentleman, who presents with cholecystitis, underwent cholecystectomy, had a rough postop course with Gram-negative sepsis. Now, he is not following commands. There is question of neurologic integrity. He previously has a history of coronary bypass graft surgery, he had no ongoing ischemia. However, prior to this event, his ejection fraction was normal. Echocardiogram done March 12 revealed an ejection fraction in the 25% range. His EKG does suggest ongoing ischemia. He is not in heart failure at this time. His heart rate and blood pressure are normal. He has had no dysrhythmias. PHYSICAL EXAMINATION: GENERAL APPEARANCE: Well-nourished, well-developed, appears stated age. Level of distress, comfortable. PSYCHIATRIC: Mental status, alert, normal affect. Orientation, oriented to time, place and person. EYES: Lids and conjunctiva, noninjected. No discharge, no pallor. ENT: Lips, teeth, gums, normal dentition. Oropharynx, no cyanosis, no pallor. NECK: Carotid arteries, bilateral normal upstroke, no bruits, no thrills. JUGULAR VEINS: No jugular venous pressure or distention. CERVICAL LYMPH NODES: Nontender, nonenlarged. THYROID: Not enlarged. Nontender. No nodules. LUNGS: Respiratory effort, unlabored. CHEST: Normal curvature. No thoracic deformity. No chest wall tenderness. Percussion, resonant. Auscultation, clear. No wheezes, no rales, no rhonchi. CARDIOVASCULAR: Precordial exam, nondisplaced. No heaves or pericardial thrills. Rate and rhythm, regular. Heart sounds, normal S1, normal S2. No S3, no gallop, no rub. Systolic murmur, not heard. Diastolic murmur, not heard. EXTREMITIES: No cyanosis, no edema. Peripheral pulses, full and equal in all extremities, except as noted. No bruits appreciated. ABDOMEN: Soft, nondistended. Normal aorta. No bruit. Nontender. No masses. Liver, nontender, no hepatomegaly. Spleen, nontender, no splenomegaly. MUSCULOSKELETAL: No joint tenderness. No joint swelling. No erythema. NEUROLOGICAL: Normal gait, normal strength, normal tone. SKIN: Warm and dry. REVIEW OF SYSTEMS: The patient reports easy bruising but reports no swollen glands. The patient reports no fever, no night sweats, no significant weight gain, no significant weight loss. No significant exercise tolerance. The patient reports no dry eyes, no irritation, no vision change. Patient reports CONSULT REPORT [id number] GIRISH PADILLA no difficulty hearing and no ear pain. Patient reports no frequent nose bleeds or nose and sinus problems. Patient reports on arm pain on exertion. No shortness of breath while lying down. No history of heart murmur. Patient reports no cough, no wheezing or coughing up blood. Patient reports no abdominal pain, no vomiting. Normal appetite. No diarrhea and not vomiting blood. No nausea and no constipation. Patient reports no incontinence. No difficulty urinating. No hematuria. No increased frequency. Patient reports no muscle aches. No weakness, no arthralgias, no back pain. No swelling of the extremities. Patient reports no abnormal mole, no jaundice, no rashes. Reports no loss of consciousness. No weakness and no numbness. No seizures, dizziness, or headaches. The patient reports no depression, no sleep disturbance, feeling safe in a relationship and no alcohol abuse. Patient reports on fatigue. Reports no runny nose or sinus pressure. No itching, no hives, and no frequent sneezing. OVERALL IMPRESSION: His low ejection fraction may be acute due to the Gram-negative sepsis, more likely it is low acute bleed due to ongoing ischemia; however, at this time with the question of neurologic integrity, would not proceed with cardiac catheterization. If he makes it through this and regains his normal neurologic status, will consider coronary angiography one more if stable from the physiological standpoint. TRANSINT:[id number] Voice Confirmation ID: [id number] DOCUMENT ID: [id number] DEMARIO LANZA MD at 1011 CC: [id number] DICTATION DATE: 03/20/17 1208 CLASSIFICATION OFFICER: 03/20/17 1851 ADM IN [facility] [address] [place] [id number]
[2017-03-21 16:11] LABS: AEROBE ID Final report (())
--- NOTE | 2017-03-21 17:12 | NUR ---
cvp 14, lasix given.
--- NOTE | 2017-03-21 19:00 | NUR ---
REPORT RECEIVED. SEDATED ON VENT, SEE FLOW SHEET FOR VENT SETTINGS. L CVL, DRESSING CLEAN AND DRY, SEE FLOW SHEET FOR IV DRIPS. OGT IN PLACE, RESIDUAL AMOUNT OF 110 WILL CONTINUE FEEDINGS AT 75 MLS/HR PER DOCTORS ORDERS. TELEMETRY MONITORING CONTROLLED A-FIB. SCDs IN PLACE. BED IN LOWEST POSITION. WILL CONTINUE TO MONITOR.
--- NOTE | 2017-03-21 21:00 | NUR ---
SEDATED ON VENT. TAMIR CÁRDENAS IN ROOM, DISCUSSED PT STATUS. VSS. WILL CONTINUE TO MONITOR.
--- NOTE | 2017-03-21 23:00 | NUR ---
REASSESSMENT COMPLETE. VSS WILL CONTINUE TO MONITOR. BED IN LOWEST POSITION.
[2017-03-22] VITALS (23 sets, daily range): BP systolic 103–157; BP diastolic 48–92
--- NOTE | 2017-03-22 01:00 | NUR ---
SEDATED ON VENT. VSS. WILL CONTINUE TO MONITOR. BED IN LOWEST POSITION.
--- NOTE | 2017-03-22 03:00 | NUR ---
REASSESSMENT COMPLETE, SEE FLOW SHEET FOR DETAILS. VSS. WILL CONTINUE TO MONITOR.
[2017-03-22 04:24] LABS: BASOPHILS 0.1 % (0-2); EOSINOPHILS 3.5 % (0-7); HEMOGLOBIN 12.2 g/dL (13.5-17.5); IMMATURE GRANULOCYTES 1.6 % (0-5); LYMPHOCYTES 9.9 % (15-50); MCH 31.9 pg (26.0-34.0); MCHC 33.9 g/dL (31.0-37.0); MEAN PLATELET VOLUME 12.3 fL (7.4-10.4); MONOCYTES 6.8 % (2-11); NEUTROPHILS 78.1 % (40-80); RBC 3.83 10x6/uL (4.20-6.10); RDW 14.5 % (11.5-14.5); WBC 12.2 10x3/uL (4.8-10.8)
[2017-03-22 04:25] LABS: PLATELET COUNT 165 10x3/uL (130-400)
[2017-03-22 04:49] LABS: ALBUMIN 1.5 g/dL (3.4-5.0); ALKALINE PHOSPHATASE 206 U/L (46-116); ALT (SGPT) 42 U/L (10-68); BILIRUBIN - TOTAL 1.25 mg/dL (0.2-1.3); CALC OSMOLALITY 287 mosm/kg (275-300); CALCIUM 7.8 mg/dL (8.5-10.1); CARBON DIOXIDE 30.6 mmol/L (21.0-32.0); CHLORIDE - SERUM 101 mmol/L (98-107); GLUCOSE 207 mg/dL (74-106); POTASSIUM - SERUM 3.4 mmol/L (3.5-5.1); PRO BNP 2717 pg/mL (0-450); PROTEIN - SERUM 4.7 g/dL (6.4-8.2); SODIUM 138 mmol/L (136-145); UREA NITROGEN 30 mg/dL (7-18); eGFR NON AFRICAN AMERICAN 75 mL/min (90-120)
--- NOTE | 2017-03-22 05:20 | NUR ---
REPOSITIONED FOR COMFORT, ORAL CARE PROVIDED,
--- NOTE | 2017-03-22 19:00 | NUR ---
REPORT RECEIVED. SEDATED ON DIRPRIVAN AT 30 MCG/KG/MIN. OGT PLACEMENT VERIFIED. TUBE FEEDINGS OF VITAL 1.0 GOSIA INFUSING VIA OGT AT 75 MLS/HR, RESIDUAL OF 0 MLS, WILL CONTINUE WITH FEEDINGS. 7.[address] AT 22 CM AT L LIP LINE. SEE FLOW SHEET FOR VENT SETTINGS. S1S2 PRESENT IRREGULAR. TELEMETRY MONITORING CONTROLLED A-FIB RATE OF 90. BS ACTIVE X4. LAP INCISIONS X3. RT ABD INCISION YELLOW DRAINAGE NOTED TO GRAVITY DRAIN. EDEMA NOTED IN SCROTUM. THIBODEAUX PATENT ABER URINE NOTED. BILAT RADIAL AND POPLITEAL PULSES PALP. CAPILLARY REFILL UPPER AND LOWER EXTREMITIES <3 SECS. SCDs ON. L CVL PATENT, SEE FLOW SHEET FOR INFUSIONS. BED IN LOWEST POSITION.
--- NOTE | 2017-03-22 20:15 | NUR ---
DR. MCMAHON AT BEDSIDE, IGLESIA CUADRA RECIEVED IF TEMP GETS TO 101 OR ABOVE DRAW 2 BLOOD CULTURES.
--- NOTE | 2017-03-22 21:00 | NUR ---
TAMIR CHAPPELL AT BEDSIDE, GIVEN UPDATE. NO NEW CHANGES. VSS. WILL CONTINUE TO MONITOR.
--- NOTE | 2017-03-22 23:00 | NUR ---
REASSESSMENT COMPLETE PER FLOW SHEET REFER FOR FINDINGS.
[2017-03-23] VITALS (24 sets, daily range): BP systolic 112–143; BP diastolic 55–92
--- NOTE | 2017-03-23 01:00 | NUR ---
NO CHANGES NOTED. VSS. WILL CONTINUE TO MONITOR.
--- NOTE | 2017-03-23 03:00 | NUR ---
REASSESSMENT COMPLETE PER FLOW SHEET REFER FOR DETAILS. WILL CONTINUE TO MONITOR.
--- NOTE | 2017-03-23 05:00 | NUR ---
VSS. WILL CONTINUE TO MONITOR.
[2017-03-23 05:36] LABS: BASOPHILS 0.1 % (0-2); EOSINOPHILS 2.3 % (0-7); HEMATOCRIT 35.6 % (42.0-54.0); IMMATURE GRANULOCYTES 1.4 % (0-5); LYMPHOCYTES 9.9 % (15-50); MCHC 33.7 g/dL (31.0-37.0); MCV 94.9 fL (80.0-100.0); MEAN PLATELET VOLUME 11.9 fL (7.4-10.4); MONOCYTES 7.5 % (2-11); NEUTROPHILS 78.8 % (40-80); RBC 3.75 10x6/uL (4.20-6.10); RDW 14.7 % (11.5-14.5); WBC 13.7 10x3/uL (4.8-10.8)
[2017-03-23 05:38] LABS: PLATELET COUNT 205 10x3/uL (130-400)
[2017-03-23 05:52] LABS: ALBUMIN 1.8 g/dL (3.4-5.0); ALKALINE PHOSPHATASE 224 U/L (46-116); ALT (SGPT) 39 U/L (10-68); BILIRUBIN - TOTAL 1.53 mg/dL (0.2-1.3); CALC OSMOLALITY 282 mosm/kg (275-300); CARBON DIOXIDE 31.7 mmol/L (21.0-32.0); CHLORIDE - SERUM 101 mmol/L (98-107); CREATININE - SERUM 0.9 mg/dL (0.6-1.3); PHOSPHOROUS 3.2 mg/dL (2.5-4.9); POTASSIUM - SERUM 3.7 mmol/L (3.5-5.1); SODIUM 137 mmol/L (136-145); UREA NITROGEN 28 mg/dL (7-18); eGFR NON AFRICAN AMERICAN 85 mL/min (90-120)
[2017-03-23 05:56] LABS: GLUCOSE 153 mg/dL (74-106)
--- NOTE | 2017-03-23 06:00 | NUR ---
TAMIR CÁRDENAS IN ROOM, DISCUSSED PT STATUS. VSS. WILL CONTINUE TO MONITOR.
--- NOTE | 2017-03-23 07:16 | NUR ---
REPORT RECD PT CARE ASSUMED. PT IS SEDATED ON VENTILATOR. DOES NOT FOLLOW COMMANDS. AFIB PER CM. LUNG SOUNDS COARSE. SCDS/THIBODEAUX/PPP. PT HAS LAB SITES X 3. VSS. SEE SHIFT ASSESSMENT FOR FURTHER DETAILS.
--- NOTE | 2017-03-23 09:24 | NUR ---
PT SON AT BEDSIDE. UPDATE PROVIDED. VSS.
--- NOTE | 2017-03-23 10:20 | NUR ---
Nutrition Follow-up: Pt remains intubated, sedated Vital 1.0 nisha infusing @ 75 ml/hr Labs reviewed Pt tolerating TF at goal rate RDN following.
--- NOTE | 2017-03-23 10:47 | NUR ---
PT TO CT AND BACK ACCOMPANIED BY RN AND RT. PT TOLERATES WELL. PT BACK IN ICU ATTACHED TO ALL MONITORS. VSS.
--- NOTE | 2017-03-23 12:30 | NUR ---
PT FAMILY AT BEDSIDE. DR TAYLOR AT BEDSIDE TALKING WITH FAMILY AT THIS TIME. VSS. PT REPOSITIONED, ORAL CARE AND SUCTION PROVIDED.
--- NOTE | 2017-03-23 14:00 | NUR ---
PT PULLED UP IN BED AND REPOSITIONED. ORAL CARE AND SUCTION PROVIDED. VSS. WILL CONT TO MONITOR.
--- NOTE | 2017-03-23 16:00 | NUR ---
NO CHANGES AT THIS TIME. VSS. WILL MONITOR.
--- NOTE | 2017-03-23 18:00 | NUR ---
FAMILY AT BEDSIDE. UPDATE PROVIDED. VSS.
[2017-03-23 19:14] LABS: EOS BF 10 %; LYMPH - BF 7 %; MACROPHAGES BF 8 %; MESOTHELIALS BF 6 %; NEUT - BF 69 %
--- NOTE | 2017-03-23 19:40 | NUR ---
REC'D PT ON VENT VIA 7.5 ETT TAPED @ 22CM LIPLINE SEE FLOWSHEET FOR VENT SETTINGS, PT SEDATED ON VENT, COUGHING ONLY NOTED WITH STIMULATION, DOES NOT OPEN EYES OR FOLLOW COMMANDS, OGT TAPED SECURELY TO ETT, PLACEMENT VERIFIED VIA SM AIR BOLUS AUSCULTATED OVER EPIGASTRIM, VITAL 1.0 INFUSING @ 75CC/HR, RESIDUAL 10, LSCL DRSG CDI WITH NS @ 5CC/HR, DIPRIVAN @ 30MCG/KG/MIN AND DOBUTAMINE @ 5MCG/KG/MIN, ABD ROUND AND SOFT, GENERALIZED EDMEA TO UPPER EXT'S, LAP INCISIONS X 3 TO ABD, CDI, PREVIOUS AGUSTÍN DRAIN TO RIGHT ABD, DRAINAGE COLLECTION BAG PRESENT WITH SEROUS DRAINAGE NOTED, SCROTAL EDEMA NOTED, THIBODEAUX PATENT DRAINING COLIN COLORED URINE, SCD'S ON, BILAT SOFT WRIST RESTRAINTS INTACT.
--- NOTE | 2017-03-23 21:00 | NUR ---
TAMIR CHAPPELL AT BS, UPDATE GIVEN AND QUESTIONS ANSWERED.
--- NOTE | 2017-03-23 21:30 | NUR ---
EVENING MEDS GIVEN, PT REPOSITIONED ONTO LEFT SIDE SUPPORTED WITH PILLOWS AND ORAL CARE PROVIDED, NYSTATIN POWDER APPLIED TO EXCORIATED INNER THIGHS, SCROTUM ELEVATED, WILL MONITOR CLOSELY FOR CHANGES.
--- NOTE | 2017-03-23 23:30 | NUR ---
REASSESSMENT COMPLETED, PT REPOSITIONED UP AND ONTO BACK, ARMS ELEVATED ON PILLOWS, ORAL CARE PROVIDED, RESP RATE 25-30, DIPRIVAN INCREASED TO 35MCG/KG/MIN
[2017-03-24] VITALS (23 sets, daily range): BP systolic 115–145; BP diastolic 58–80
--- NOTE | 2017-03-24 | NUR ---
RESP RATE 28, DIPRIVAN INCREASED TO 40MCG/KG/MIN, WILL MONITOR CLOSELY FOR CHANGES.
--- NOTE | 2017-03-24 02:00 | NUR ---
NO CHANGES IN STATUS AT THIS TIME
--- NOTE | 2017-03-24 04:00 | NUR ---
COMPLETE BATH AND LINEN CHANGE PROVIDED, PT REPOSITIONED UP AND ONTO LEFT SIDE, BARRIER SPRAY APPLIED TO INNER THIGHS AND BUTTOCKS, SM SMEAR OF STOOL NOTED.
--- NOTE | 2017-03-24 05:00 | NUR ---
ROUTINE MEDS GIVEN ORDERED
[2017-03-24 05:55] LABS: BASOPHILS 0.1 % (0-2); HEMATOCRIT 35.5 % (42.0-54.0); HEMOGLOBIN 11.8 g/dL (13.5-17.5); IMMATURE GRANULOCYTES 0.8 % (0-5); LYMPHOCYTES 9.3 % (15-50); MCH 31.6 pg (26.0-34.0); MCHC 33.2 g/dL (31.0-37.0); MCV 94.9 fL (80.0-100.0); MEAN PLATELET VOLUME 11.9 fL (7.4-10.4); MONOCYTES 8.2 % (2-11); NEUTROPHILS 79.6 % (40-80); RBC 3.74 10x6/uL (4.20-6.10); RDW 14.8 % (11.5-14.5); WBC 13.6 10x3/uL (4.8-10.8)
[2017-03-24 05:58] LABS: PLATELET COUNT 248 10x3/uL (130-400)
[2017-03-24 06:18] LABS: ALBUMIN 1.9 g/dL (3.4-5.0); ALKALINE PHOSPHATASE 279 U/L (46-116); ALT (SGPT) 47 U/L (10-68); CALC OSMOLALITY 278 mosm/kg (275-300); CALCIUM 8.1 mg/dL (8.5-10.1); CARBON DIOXIDE 29.4 mmol/L (21.0-32.0); CHLORIDE - SERUM 100 mmol/L (98-107); CREATININE - SERUM 0.9 mg/dL (0.6-1.3); GLUCOSE 186 mg/dL (74-106); MAGNESIUM - SERUM 2.1 mg/dL (1.8-2.4); PHOSPHOROUS 3.3 mg/dL (2.5-4.9); POTASSIUM - SERUM 3.7 mmol/L (3.5-5.1); PROTEIN - SERUM 5.1 g/dL (6.4-8.2); SODIUM 135 mmol/L (136-145); UREA NITROGEN 25 mg/dL (7-18); eGFR NON AFRICAN AMERICAN 85 mL/min (90-120)
--- NOTE | 2017-03-24 07:30 | EEG ---
PATIENT:GIRISH PADILLA DATE OF SERVICE: 03/12/17 MEDICAL RECORD: [id number] DATE OF : [birth year] LOCATION:D.230 D.ICU ADMISSION DATE: 03/12/17 REFERRING PHYSICIAN: INTERPRETING PHYSICIAN: LUCILLE MILLAN MD DATE OF SERVICE: 03/21/2017 Electroencephalographic Report Referred as an inpatient by Dr. Gibbons. ELECTROENCEPHALOGRAM NUMBER: [id number] DATE OF EXAMINATION: 03/21/2017, at 8:45 a.m. TECHNICAL DATA: This electroencephalographic recording consists of approximately 20 minutes of data collection utilizing the international 10/20 system of electrode placement and both referential and non-referential montages. Sixteen channels of electrocerebral recording are accompanied by a 17th channel dedicated to the electrocardiographic rhythm and 2 channels of electromyographic recording. Recording is performed entirely in the comatose state utilizing activation by photic stimulation as well as verbal and tactile stimulation. ELECTROENCEPHALOGRAPHIC DATA: The entirety of the recorded electrocerebral activity is performed in the comatose state. Electromyographic artifact is diminished and rapid eye movements are not seen. A posterior dominant background is not observed. The study is monotonous and consists of a mixture of slow wave activities ranging from 2-4 Hz that are irregular in morphology, generalized and symmetric in distribution, though at times, more prominent in the frontal regions bilaterally. These sometimes have a triphasic morphology, but this is not consistent nor these happen with a regular rhythmicity. No focal slowing is identified. No epileptiform discharges are seen. Photic stimulation as well as verbal and tactile stimulation induced no change in the recorded electrocerebral activity. INTERPRETATION: Continuous slow, generalized (coma). This electroencephalographic recording is indicative of a moderately severe diffuse encephalopathy. TRANSINT:[id number] Voice Confirmation ID: [id number] DOCUMENT ID: [id number] LUCILLE MILLAN MD at 0730 CC: [id number] DICTATION DATE: 03/22/17 0849 SCHOOL PSYCHOLOGY SPECIALIST: 03/23/17 0053 ADM IN [facility] [address] [place] [address]
--- NOTE | 2017-03-24 11:51 | NUR ---
0800 AM ASSESMENT IS COMPLETE.. SEE FLOW SHEET FOR FINDINGS.. PT IS SEDATED AND ORALLY INTUBATED ON VENT 0815 LINEN CHANGE AND BATH GIVEN.. DR ALEJANDRE IN TO SEE PT 0900 FAMILY IN TO SEE PT AND UPDATE IS GIVEN QUESTIONS ANSWERED ABOUT TRACH AND PEG..STATED THAT THEY HAD SPOKEN WITH DR ALEJANDRE.. 1030 DR TAYLOR IN TO SEE PT AND UPDATE IS GIVEN.. INFORMED THAT FAMILY WISHES TO SPEAK WITH HIM 1200 FAMILY IN TO SEE PT..
--- NOTE | 2017-03-24 17:19 | NUR ---
1500 FAMILY IN TO SEE PT AND UPDATE IS GIVEN.. 1600 REPOSITIONED NO CHANGES IN PT STATUS.. 1630 I AND O DONE ..
--- NOTE | 2017-03-24 19:20 | NUR ---
REPORT REC'D AND CARE ASSUMED, REC'D PT ON VENT VIA 7.5 ETT TAPED @ 22CM LIPLINE, SEE FLOWSHEET FOR VENT SETTINGS, PT SEDATED DOES NOT RESPOND TO VERBAL STIMULI OR FOLLOW COMMANDS, OGT TAPED TO ETT, PLACEMENT VERIFIED VIA SM AIR BOLUS AUSCULTATED OVER EPIGASTRIM, OGT WITH VITAL 1.0 INFUSING @ 75CC/HR, LTLSCL DRSG CDI NS @ 5CC/HR, DIPRIVAN @ 55MCG/KG/MIN, DOBUTAMINE @ 5MCG/KG/MIN, GENERALIZED EDEMA TO UPPER EXT'S, LAP INCISIONS X 3 TO ABD, DRAINAGE BAG TO PREVIOUS AGUSTÍN SITE ON RIGHT SIDE OF ABDOMEN, 2+ PITTING EDEMA NOTED TO LOWER EXT'S, BILAT SCD'S INTACT, SCROTAL EDEMA NOTED, THIBODEAUX PATENT DRAINING COLIN COLORED URINE, PP WEAK TO PALPATION, BILAT SOFT WRIST RESTRAINTS INTACT, SR UP X 2.
--- NOTE | 2017-03-24 21:00 | NUR ---
SON AT , UPDATE PROVIDED AND QUESTIONS ANSWERED BY JOHN SANDOVAL AND MYSELF
--- NOTE | 2017-03-24 22:00 | NUR ---
EVENING MEDS GIVEN ORDERED.
--- NOTE | 2017-03-24 23:30 | NUR ---
REASSESSMENT COMPLETED, NO CHANGES FROM PREVIOUS ASSESSMENT, ORAL CARE PROVIDED AND PT REPOSITIONED ONTO LEFT SIDE SUPPORTED WITH PILLOWS, WILL MONITOR FOR CHANGES.
[2017-03-25] VITALS (23 sets, daily range): BP systolic 110–147; BP diastolic 59–87
--- NOTE | 2017-03-25 02:00 | NUR ---
NO CHANGES IN STATUS AT THIS TIME
--- NOTE | 2017-03-25 03:15 | NUR ---
RADIOLOGY AT BS FOR AM CXR
[2017-03-25 04:10] LABS: BASOPHILS 0.1 % (0-2); EOSINOPHILS 1.9 % (0-7); HEMATOCRIT 34.9 % (42.0-54.0); HEMOGLOBIN 11.8 g/dL (13.5-17.5); IMMATURE GRANULOCYTES 1.1 % (0-5); LYMPHOCYTES 7.6 % (15-50); MCHC 33.8 g/dL (31.0-37.0); MCV 94.6 fL (80.0-100.0); MEAN PLATELET VOLUME 11.4 fL (7.4-10.4); MONOCYTES 8.3 % (2-11); PLATELET COUNT 282 10x3/uL (130-400); RBC 3.69 10x6/uL (4.20-6.10); RDW 14.6 % (11.5-14.5)
[2017-03-25 04:32] LABS: ALKALINE PHOSPHATASE 291 U/L (46-116); ALT (SGPT) 46 U/L (10-68); CALC OSMOLALITY 274 mosm/kg (275-300); CALCIUM 8.1 mg/dL (8.5-10.1); CARBON DIOXIDE 31.1 mmol/L (21.0-32.0); CHLORIDE - SERUM 99 mmol/L (98-107); CREATININE - SERUM 0.8 mg/dL (0.6-1.3); GLUCOSE 194 mg/dL (74-106); MAGNESIUM - SERUM 2.1 mg/dL (1.8-2.4); PHOSPHOROUS 3.8 mg/dL (2.5-4.9); PROTEIN - SERUM 5.1 g/dL (6.4-8.2); SODIUM 133 mmol/L (136-145); UREA NITROGEN 23 mg/dL (7-18); eGFR NON AFRICAN AMERICAN > 90 mL/min (90-120)
--- NOTE | 2017-03-25 05:00 | NUR ---
PT REPOSITIONED UP IN BED AND ONTO RIGHT SIDE SUPPORTED WITH PILLOWS, ORAL CARE PROVIDED.
--- NOTE | 2017-03-25 06:00 | NUR ---
SON AT BS UPDATE GIVEN AND QUESTIONS ANSWERED, ROUTINE MEDS GIVEN, VSS.
--- NOTE | 2017-03-25 07:30 | NUR ---
SHIFT ASSESSMENT COMPLETED. SEE FLOWSHEETS FOR FINDINGS. PT IS VENTILATED AND SEDATED. OGT SECURED TO ETT. SCD'S ON. THIBODEAUX. RESTRAINED.
--- NOTE | 2017-03-25 09:00 | NUR ---
MORNING MEDICATIONS GIVEN. 20ML RESIDUAL NOTED FROM OGT.
--- NOTE | 2017-03-25 10:40 | NUR ---
PROPOFOL TURNED OFF PER DR CLAUDIA BARNEY
[2017-03-25 11:17] LABS: FUNGUS STAIN Final report (())
--- NOTE | 2017-03-25 12:10 | NUR ---
LON AT BEDSIDE FOR VISITATION. PT HAS HAD SEDATION OFF FOR APPROXIMATELY 2 HOURS. EYES OPEN. COUGHING. DR TAYLOR ASKED FOR LIDOCAINE TO BE ADMINISTERED. RESPIRATORY THERAPIST CALLED.
--- NOTE | 2017-03-25 15:40 | NUR ---
ALL NEW LINES RUN AND NEW BAGS IV MEDICATIONS HUNG. NEW MANIFOLD ALSO IN USE. EACH LINE AND MANIFOLD WITH DAY CHANGE STICKER. ALL ENTRY POINTS CAPPED WITH ORANGE CAP.
--- NOTE | 2017-03-25 18:10 | NUR ---
MISTI GARNETT, AT BEDSIDE. DR CORREA AT BEDSIDE DISCUSSING PT PROGRESS.
--- NOTE | 2017-03-25 19:10 | NUR ---
SHIFT ASSESSMENT COMPLETE. PATIENT ON VENT AND CURRENTLY HAS NO SEDATION MEDICINE. WILL OPEN EYES, BUT NOT FOLLOW COMMANDS OR MOVE EXTREMITIES. OGT INFUSING VITAL 1.0 @ GOAL RATE OF 75. RESIDUAL 20CC. PLACEMENT VERIFIED WITH AIR BOLUS. CRACKLES HEARD WITH LUNG SOUNDS. PATIENT IN A-FIB, HR RANGING FROM 100-120'S. BP STABLE. BOWEL SOUNDS ACTIVEX4, ABDOMEN ROUND AND SOFT. INCISIONX2 ON ABDOMEN, STERISTRIPS INTACT. NO REDNESS NOTED. OLD AGUSTÍN DRAIN SITE ON RIGHT ABDOMEN, COVERED WITH DRAIN BAG THAT HAS CLEAR/YELLOW FLUID INSIDE. THIBODEAUX DRAINING COLIN COLORED URINE TO GRAVITY. SCROTAL SACK EDEMATOUS, ELEVATED ON TOWEL. GENERALIZED EDEMA IN ALL EXTREMITIES, ALL PROPPED ON PILLOWS. CAP REFILL < 3SECS, PERIPHERAL PULSES +2. TUBE FEEDING BAG CHANGED AT THIS TIME. ORAL CARE GIVEN, SUCTIONED, TURNED. VSS, WILL MONITOR.
--- NOTE | 2017-03-25 21:00 | NUR ---
SON AT BEDSIDE, UPDATE GIVEN.
--- NOTE | 2017-03-25 23:00 | NUR ---
REASSESSMENT COMPLETE. NO CHANGES IN PATIENT'S CONDITION. FREQUENT COUGH NOTED, LIDOCAINE GIVEN VIA RT. PATIENT STILL WON'T RESPOND TO STIMULI. WILL NOT FOLLOW COMMANDS. EYES OPEN SPONTANEOUSLY. SEE FLOWSHEET FOR MORE DETAILS.
[2017-03-26] VITALS (23 sets, daily range): BP systolic 110–158; BP diastolic 64–99
--- NOTE | 2017-03-26 01:17 | NUR ---
PATIENT REDFACED, RR IN THE 40'S, CONTINOUS COUGH, LIDOCAINE GIVEN WITHOUT RELIEF. PROPOFOL STARTED BACK AT LOW DOSE.
--- NOTE | 2017-03-26 01:17 | NUR ---
RAVI-CERVANTES LIKE BREATHING ALSO NOTED BEFORE STARTING SEDATION BACK.
[2017-03-26 03:10] LABS: ACID FAST SMEAR Negative (()); AFB SPECIMEN PROCESSING Concentration (())
--- NOTE | 2017-03-26 03:15 | NUR ---
PATIENT HAD SMALL BM, LINENS CHANGED AND PATIENT CLEANED.
[2017-03-26 04:38] LABS: BASOPHILS 0.2 % (0-2); EOSINOPHILS 1.8 % (0-7); HEMATOCRIT 32.7 % (42.0-54.0); HEMOGLOBIN 10.9 g/dL (13.5-17.5); IMMATURE GRANULOCYTES 0.7 % (0-5); MCH 31.6 pg (26.0-34.0); MCHC 33.3 g/dL (31.0-37.0); MCV 94.8 fL (80.0-100.0); MEAN PLATELET VOLUME 11.3 fL (7.4-10.4); MONOCYTES 8.7 % (2-11); NEUTROPHILS 76.6 % (40-80); PLATELET COUNT 328 10x3/uL (130-400); RBC 3.45 10x6/uL (4.20-6.10); RDW 14.6 % (11.5-14.5); WBC 12.2 10x3/uL (4.8-10.8)
--- NOTE | 2017-03-26 05:00 | NUR ---
NO CHANGE IN PATIENT'S STATUS.
[2017-03-26 05:01] LABS: ALBUMIN 2.1 g/dL (3.4-5.0); ALKALINE PHOSPHATASE 293 U/L (46-116); ALT (SGPT) 46 U/L (10-68); BILIRUBIN - TOTAL 1.39 mg/dL (0.2-1.3); CALC OSMOLALITY 274 mosm/kg (275-300); CALCIUM 8.1 mg/dL (8.5-10.1); CARBON DIOXIDE 30.4 mmol/L (21.0-32.0); CHLORIDE - SERUM 100 mmol/L (98-107); GLUCOSE 158 mg/dL (74-106); MAGNESIUM - SERUM 2.1 mg/dL (1.8-2.4); PHOSPHOROUS 3.2 mg/dL (2.5-4.9); POTASSIUM - SERUM 3.9 mmol/L (3.5-5.1); PROTEIN - SERUM 5.1 g/dL (6.4-8.2); SODIUM 134 mmol/L (136-145); UREA NITROGEN 23 mg/dL (7-18); eGFR NON AFRICAN AMERICAN 75 mL/min (90-120)
--- NOTE | 2017-03-26 19:10 | NUR ---
SHIFT ASSESSMESNT COMPLETE, PATIENT SEDATED AND ON VENT. CURRENTLY UNRESPONSIVE, SEDATION VACATION PERFORMED WITH NO DIFFERENT RESULTS. PATIENT HAS FREQUENT COUGH, ORAL CARE AND SUCTIONING PERFORMED AT THIS TIME BY RT. OGT INFUSING VITAL 1.0 @ 75MLS/HR. PLACEMENT VERIFIED WITH AIR BOLUS, RESUALS < 10CC. CRACKLES HEARD WITH LUNG SOUNDS, RR EVEN AND NONLABORED. S1S2, A-FIB ON MONITOR WITH HR 90-120'S. BP STABLE. BOWEL SOUNDS ACTIVE, ABDOMEN ROUND AND SOFT. INCISION X3 ON ABDOEMN, ONE MID AND OTHER 2 RIGHT SIDE. STERISTRIPS PRESENT. OSTOMY DRAIN COVERING OLD AGUSTÍN SITE ON RIGHT ABDOMEN, LEAKING CLEAR YELLOW DRAINAGE INTO BAG. ALL INCISIONS WITHOUT REDNESS. SCROTAL SACK VERY SWOLLEN. ELEVATED WITH TOWEL. GENERALIZED EDEMA IN ALL EXTREMITIES, ELEVATED WITH PILLOWS. LEFT SUBCLAVIAN CL DRESSING C/D/I, SEE IV DRIPS FOR DRIPS. NO REDNESS OR SWELLING SEEN. CVP ZEROED, RECORDING OF 8. VSS, WILL MONITOR.
--- NOTE | 2017-03-26 21:00 | NUR ---
PATIENT'S SON AT BEDSIDE, SPOKE AT LENGTH WITH PATIENTS CONDITION AND PLANNED EXTUBATION TOMORROW. NO CHANGES WITH PATIENT'S STATUS.
--- NOTE | 2017-03-26 23:05 | NUR ---
REASSESSMENT COMPLETE, SEE FLOWSHEET, NO ACUTE CHANGES.
[2017-03-27] VITALS (15 sets, daily range): BP systolic 124–175; BP diastolic 72–131
--- NOTE | 2017-03-27 00:30 | NUR ---
TUBE FEEDING CHANGED PER PROTOCOL.
--- NOTE | 2017-03-27 01:00 | NUR ---
VSS, NO CHANGES WITH PATIENT.
--- NOTE | 2017-03-27 03:00 | NUR ---
REASSESSMENT COMPLETE, NO CHANGES.
--- NOTE | 2017-03-27 05:00 | NUR ---
VSS, WILL MONITOR.
--- NOTE | 2017-03-27 15:16 | NUR ---
1400 PT EXTUBATED PER FAMILY REQUEST AND ODERS PER MD. FAMILY AT BEDSIDE. SEDATION AND TUBE FEEDS TURNED OFF. PT DOES NOT SEEM TO BE IN ANY DISTRESS OR DISCOMFORT. 1425 PT , PROUNOUNCED BY PART TIME RECEPTIONIST. FAMILY STAYED IN ROOM TIL APPROX 1500. 1430 CALLED [facility], PT DOES NOT QUALIFT D/T AGE. BRIQUETTER OPERATOR NOTIFED 1500 PT CLEANED UP 1518 HOME CALLED.
== END 2017-03-27 15:25 | DRG 870 ==
LOC: D.ER 15:22 → D.ICU 19:38 → D.MS 19:38 → D.ICU 03-13 18:33
PROVIDERS: Emergency Medicine; Family Medicine; Internal Medicine Pulmonary Disease; Surgery; ADMIT Family Medicine
DX: A41.50 Gram-negative sepsis, unspecified (principal); J96.01 Acute respiratory failure with hypoxia; J69.0 Pneumonitis due to inhalation of food and vomit; I50.21 Acute systolic (congestive) heart failure; G93.40 Encephalopathy, unspecified; K83.0 Cholangitis; N17.9 Acute kidney failure, unspecified; I42.9 Cardiomyopathy, unspecified; R65.20 Severe sepsis without septic shock; G30.9 Alzheimer's disease, unspecified; F02.80 Dementia in other diseases classified elsewhere, unspecified severity, without behavioral disturbance, psychotic disturbance, mood disturbance, and anxiety; T63.891A Toxic effect of contact with other venomous animals, accidental (unintentional), initial encounter; K21.9 Gastro-esophageal reflux disease without esophagitis; E03.9 Hypothyroidism, unspecified; N18.9 Chronic kidney disease, unspecified; I25.10 Atherosclerotic heart disease of native coronary artery without angina pectoris; Z95.1 Presence of aortocoronary bypass graft; E80.6 Other disorders of bilirubin metabolism; Z87.891 Personal history of nicotine dependence; I48.0 Paroxysmal atrial fibrillation